=== PATIENT | male | born 1950 | race Two or more races ===

== ENCOUNTER 2021-01-24 12:47 | Inpatient (IN) | payer OTHER ==
[~2021-01-24] VITALS: Ht 170.2 cm; Wt 104.5 kg
[2021-01-24] MEDS ORDERED: SODIUM CHLORIDE 0.9% 1,000 ML IV ONE (13:15)
[2021-01-24] MEDS ORDERED: VANCOMYCIN PER PHARMACY 0 MG IV SCH (17:00)
[2021-01-24] MEDS ORDERED: PIPERACILLIN-TAZO 4.5GM 100 ML IV ONE (17:00)
[2021-01-24 17:07] LABS: Basophils # (auto) 0 10 ^3/uL (0-0.2); Basophils % (auto) 0.1 % (0.0-2.0); Eosinophils # (auto) 0 10 ^3/uL (0-0.8); Lymphocytes # (auto) 0.6 10 ^3/uL (0.4-5.4); White Blood Cell 7.7 10^3/uL (4.4-10.8)
[2021-01-24 17:09] LABS: Eosinophils % (auto) 0.5 % (0.0-7.0); Hematocrit 19.8 % (41.0-53.0); Lymphocytes % (auto) 7.5 % (10.0-50.0); Mean Corpuscular Hemoglobin 30.2 pg (28.0-32.0); Mean Corpuscular Hgb Conc. 32.1 g/dL (32.0-36.0); Mean Corpuscular Volume 94.1 fL (80.0-100.0); Monocytes # (auto) 1.1 10 ^3/uL (0-1.3); Monocytes % (auto) 13.7 % (0.0-12.0); Neutrophils % (auto) 78.2 % (37.0-80.0); Nucleated Red Blood Cells % 0.5 %; Red Blood Cells 2.11 10^6/uL (4.5-5.90); Red Cell Distribution Width 18.2 % (11.8-14.3)
[2021-01-24] MEDS: NOREPINEPHRINE 8 MG/250ML KIT 250 ML IV SCH (17:13)
[2021-01-24 17:14] LABS: Hemoglobin 6.4 g/dL (13.5-17.5)
[2021-01-24] MEDS ORDERED: OCTREOTIDE ACETATE 100 MCG in SODIUM CHL 0.9% 50 ML IV ONE (17:30)
[2021-01-24] MEDS ORDERED: PANTOPRAZOLE 40 MG/10 ML VIAL INJ IV ONE (17:30)
[2021-01-24] MEDS ORDERED: cefTRIAXone 1GM/50ML D5W 50 ML IV ONE (17:30)
[2021-01-24 17:31] LABS: Albumin 1.7 g/dL (3.4-5.0); Anion Gap 11 (5-15); Blood Urea Nitrogen 24 mg/dL (7-18); Calcium 8.1 mg/dL (8.5-10.1); Carbon Dioxide 20 mmol/L (21-32); Chloride 105 mmol/L (98-107); Glucose 107 mg/dL (74-106); Sodium 136 mmol/L (136-145)
[2021-01-24 17:35] LABS: Lactic Acid w/Reflex 5.1 mmol/L (0.4-2.0)
[2021-01-24 17:37] LABS: Alanine Aminotransferase 46 U/L (16-61); Alkaline Phosphatase 82 U/L (45-117); Aspartate Aminotransferase 59 U/L (15-37); Bilirubin, Total 5.5 mg/dL (0.2-1.0); GFR African American 133 mL/min; GFR Non-African American 110 mL/min; Total Protein 4.8 g/dL (6.4-8.2)
[2021-01-24 17:50] LABS: Blood Alcohol < 3.0 mg/dL (0-5)
[2021-01-24] MEDS: OCTREOTIDE ACETATE 500 MCG in SODIUM CHL 0.9% 99 ML IV SCH (18:09)
[2021-01-24] MEDS ORDERED: LORazepam 2MG/ML-1ML VIAL IV PRN (19:15)
[2021-01-24] MEDS ORDERED: MORPHINE SULFATE INJECTION 2 MG/ML SYRG IV PRN (19:15)
[2021-01-24] MEDS ORDERED: NITROGLYCERIN 0.4 MG SL TAB SL PRN (19:15)
[2021-01-24] MEDS ORDERED: SODIUM CHLORIDE 0.9% 500 ML IV ONE (19:30)
[2021-01-24 20:10] VITALS: BP 90/52
[2021-01-24 20:25] VITALS: BP 101/59
[2021-01-24 20:43] LABS: INR 2.23 (0.9-1.15); Partial Thromboplastin Time 39.4 sec (23.6-33.0)
[2021-01-24] MEDS: VANCOMYCIN 1GM/250ML 250 ML IV SCH (21:00)
[2021-01-24 21:15] VITALS: BP 102/53
[2021-01-24 22:00] VITALS: BP 96/59
[2021-01-24] MEDS: VASOPRESSIN 50 UNITS in D5W 5% 247.5 ML IV SCH (23:01)
[2021-01-24 23:20] VITALS: BP 104/66
[2021-01-25] VITALS (65 sets, daily range): BP systolic 67–126; BP diastolic 27–98
[2021-01-25] MEDS: OCTREOTIDE ACETATE 500 MCG in SODIUM CHL 0.9% 99 ML IV SCH ×3 (03:30→18:35)
[2021-01-25] MEDS: VASOPRESSIN 50 UNITS in D5W 5% 247.5 ML IV SCH ×6 (03:35→20:15)
[2021-01-25] MEDS: PANTOPRAZOLE 40 MG/10 ML VIAL INJ IV SCH ×2 (05:29→17:28)
[2021-01-25 07:11] LABS: Hemoglobin 7.1 g/dL (13.5-17.5)
[2021-01-25 07:13] LABS: Basophils # (auto) 0 10 ^3/uL (0-0.2); Basophils % (auto) 0.2 % (0.0-2.0); Eosinophils # (auto) 0 10 ^3/uL (0-0.8); Eosinophils % (auto) 0.3 % (0.0-7.0); Hematocrit 22.8 % (41.0-53.0); Lymphocytes # (auto) 0.6 10 ^3/uL (0.4-5.4); Lymphocytes % (auto) 4.8 % (10.0-50.0); Mean Corpuscular Hemoglobin 29.1 pg (28.0-32.0); Mean Corpuscular Volume 93.8 fL (80.0-100.0); Monocytes # (auto) 1.9 10 ^3/uL (0-1.3); Monocytes % (auto) 14.4 % (0.0-12.0); Neutrophils # (auto) 10.8 10 ^3/uL (1.6-8.6); Neutrophils % (auto) 80.3 % (37.0-80.0); Nucleated Red Blood Cells % 0.3 %; Red Blood Cells 2.43 10^6/uL (4.5-5.90); Red Cell Distribution Width 17.6 % (11.8-14.3); White Blood Cell 13.4 10^3/uL (4.4-10.8)
[2021-01-25 07:26] LABS: INR 2.05 (0.9-1.15)
[2021-01-25 07:33] LABS: Albumin 1.7 g/dL (3.4-5.0); BUN/Creatinine Ratio 26.6; Calcium 8.2 mg/dL (8.5-10.1)
[2021-01-25 07:36] LABS: Bilirubin, Total 7.5 mg/dL (0.2-1.0); Total Protein 4.8 g/dL (6.4-8.2)
[2021-01-25] MEDS: cefTRIAXone 1GM/50ML D5W 50 ML IV SCH (09:28)
[2021-01-25] MEDS ORDERED: PHYTONADIONE (VIT K)10 MG/ML 1ML VIAL SUBCUT ONE (10:45)
[2021-01-25] MEDS: phytonadione 10 MG in SODIUM CHL 0.9% 50 ML IV SCH (12:56)
[2021-01-25] MEDS: FOLIC ACID 1 MG, MULTIPLE VITAMIN 10 ML, MAGNESIUM SULF SDV 50% 8 MEQ, THIAMINE INJ 100... INJ SCH ×5 (12:57)
[2021-01-25 13:38] LABS: Basophils # (auto) 0 10 ^3/uL (0-0.2); Eosinophils # (auto) 0.1 10 ^3/uL (0-0.8); Eosinophils % (auto) 0.7 % (0.0-7.0); Hemoglobin 8.2 g/dL (13.5-17.5); Lymphocytes # (auto) 0.9 10 ^3/uL (0.4-5.4); Monocytes # (auto) 2.3 10 ^3/uL (0-1.3); Monocytes % (auto) 13.6 % (0.0-12.0); Neutrophils # (auto) 13.6 10 ^3/uL (1.6-8.6); White Blood Cell 16.9 10^3/uL (4.4-10.8)
[2021-01-25 13:39] LABS: Hematocrit 25.6 % (41.0-53.0); Lymphocytes % (auto) 5.2 % (10.0-50.0); Mean Corpuscular Hemoglobin 29.6 pg (28.0-32.0); Mean Corpuscular Hgb Conc. 32.1 g/dL (32.0-36.0); Neutrophils % (auto) 80.5 % (37.0-80.0); Nucleated Red Blood Cells % 0.4 %; Red Blood Cells 2.78 10^6/uL (4.5-5.90); Red Cell Distribution Width 17.4 % (11.8-14.3)
[2021-01-25] MEDS: LORazepam 2MG/ML-1ML VIAL IV PRN ×2 (16:31→21:10)
[2021-01-25] MEDS: NOREPINEPHRINE 8 MG/250ML KIT 250 ML IV SCH (17:00)
[2021-01-25] MEDS ORDERED: FUROSEMIDE 40 MG/4 ML VIAL IV ONE (17:15)
[2021-01-25] MEDS ORDERED: LIDOCAINE 2% JELLY 11ml (GLYDO) UR ONE (17:45)
[2021-01-25] MEDS: VANCOMYCIN 1GM/250ML 250 ML IV SCH (21:00)
[2021-01-25] MEDS ORDERED: VANCOMYCIN 1GM/250ML 250 ML IV ONE (21:53)
[2021-01-25] MEDS ORDERED: LORazepam 2MG/ML-1ML VIAL IV PRN (23:15)
[2021-01-26] VITALS (91 sets, daily range): BP systolic 83–130; BP diastolic 55–89
[2021-01-26] MEDS: VASOPRESSIN 50 UNITS in D5W 5% 247.5 ML IV SCH ×6 (00:25→21:15)
[2021-01-26] MEDS ORDERED: IPRATROPIUM BROM 0.5 MG/2.5ML INH SOL NEB SCH (02:00)
[2021-01-26] MEDS ORDERED: ALBUTEROL SULF 2.5 MG/0.5ML(0.5%) NEB SOLN NEB SCH (02:00)
[2021-01-26] MEDS: NOREPINEPHRINE 8 MG/250ML KIT 250 ML IV SCH (02:30)
[2021-01-26] MEDS: OCTREOTIDE ACETATE 500 MCG in SODIUM CHL 0.9% 99 ML IV SCH ×2 (04:30→19:30)
[2021-01-26 05:07] LABS: Basophils # (auto) 0 10 ^3/uL (0-0.2); Basophils % (auto) 0.1 % (0.0-2.0); Eosinophils # (auto) 0.1 10 ^3/uL (0-0.8); Hemoglobin 8.2 g/dL (13.5-17.5); Lymphocytes # (auto) 0.7 10 ^3/uL (0.4-5.4); Monocytes # (auto) 1.6 10 ^3/uL (0-1.3)
[2021-01-26 05:09] LABS: Eosinophils % (auto) 0.7 % (0.0-7.0); Hematocrit 25.8 % (41.0-53.0); Lymphocytes % (auto) 6.2 % (10.0-50.0); Mean Corpuscular Hemoglobin 29.5 pg (28.0-32.0); Mean Corpuscular Hgb Conc. 31.8 g/dL (32.0-36.0); Mean Corpuscular Volume 92.5 fL (80.0-100.0); Monocytes % (auto) 13.6 % (0.0-12.0); Neutrophils # (auto) 9.1 10 ^3/uL (1.6-8.6); Neutrophils % (auto) 79.4 % (37.0-80.0); Nucleated Red Blood Cells % 0.6 %; Red Blood Cells 2.79 10^6/uL (4.5-5.90); Red Cell Distribution Width 17.6 % (11.8-14.3); White Blood Cell 11.5 10^3/uL (4.4-10.8)
[2021-01-26 05:23] LABS: INR 1.73 (0.9-1.15); Partial Thromboplastin Time 36.2 sec (23.6-33.0)
[2021-01-26] MEDS: PANTOPRAZOLE 40 MG/10 ML VIAL INJ IV SCH ×2 (05:27→18:00)
[2021-01-26 05:34] LABS: Potassium 3.3 mmol/L (3.5-5.1)
[2021-01-26 05:42] LABS: Albumin 2.2 g/dL (3.4-5.0); BUN/Creatinine Ratio 24.4; Bilirubin, Total 7.6 mg/dL (0.2-1.0); Calcium 8.4 mg/dL (8.5-10.1); Magnesium 2.5 mg/dL (1.6-2.6); Total Protein 5.7 g/dL (6.4-8.2)
[2021-01-26] MEDS ORDERED: PHYTONADIONE (VIT K)10 MG/ML 1ML VIAL SUBCUT SCH (07:00)
[2021-01-26] MEDS: cefTRIAXone 1GM/50ML D5W 50 ML IV SCH (09:13)
[2021-01-26] MEDS ORDERED: fentaNYL CITRATE 100 MCG/2 ML VL ONE ×2 (10:19→10:45)
[2021-01-26] MEDS ORDERED: MIDAZOLAM HCL 2MG/2ML 2ml VIAL (1mg/ml) ONE ×2 (10:19→10:46)
[2021-01-26] MEDS ORDERED: ROCURONIUM 10MG/ML 10ML VIAL IV ONE (10:47)
[2021-01-26] MEDS ORDERED: SUCCINYLCHOLINE CHLORIDE 20 MG/ML 10ML VIAL IV ONE (11:08)
[2021-01-26] MEDS ORDERED: PROPOFOL 10 MG/ML 20 ML IV ONE (11:08)
[2021-01-26] MEDS ORDERED: PHENYLEPHRINE HCL 10 MG/ML VL IV ONE (11:08)
[2021-01-26] MEDS: phytonadione 10 MG in SODIUM CHL 0.9% 50 ML IV SCH (11:30)
[2021-01-26] MEDS: MIDAZOLAM DRIP 50 mg/50mL 50 ML IV SCH (11:45)
[2021-01-26] MEDS: FOLIC ACID 1 MG, MULTIPLE VITAMIN 10 ML, MAGNESIUM SULF SDV 50% 8 MEQ, THIAMINE INJ 100... INJ SCH ×5 (12:00)
[2021-01-26] MEDS: fentaNYL Drip 2500mCg/250mlNS 250 ML IV SCH (12:00)
[2021-01-26 13:02] LABS: Urine Bacteria FEW /hpf (None Seen); Urine Blood 2+ /uL (Negative); Urine Specific Gravity 1.011 (1.001-1.035); Urine WBC 5 /hpf (0 - 3)
[2021-01-26 13:17] LABS: Alcohol, Urine < 3.0 mg/dL (0-10); Amphetamine Screen, Urine NEGATIVE (NEGATIVE); Barbiturate Scree,Urine NEGATIVE (NEGATIVE); Benzodiazephine Screen, Urine POSITIVE (NEGATIVE); Cannabinoid Screen, Urine NEGATIVE (NEGATIVE); Cocaine Screen, Urine NEGATIVE (NEGATIVE); Opiate Scree,Urine NEGATIVE (NEGATIVE); Phencyclidine Screen, Urine NEGATIVE (NEGATIVE)
[2021-01-26] MEDS ORDERED: POTASSIUM CHL 20MEQ/100ML 100 ML IV ONE (13:30)
[2021-01-26] MEDS: VANCOMYCIN 1GM/250ML 250 ML IV SCH (21:00)
[2021-01-27] VITALS (100 sets, daily range): BP systolic 74–136; BP diastolic 38–82
[2021-01-27] MEDS: MIDAZOLAM DRIP 50 mg/50mL 50 ML IV SCH ×2 (00:30→19:40)
[2021-01-27] MEDS: NOREPINEPHRINE 8 MG/250ML KIT 250 ML IV SCH (00:45)
[2021-01-27] MEDS: VASOPRESSIN 50 UNITS in D5W 5% 247.5 ML IV SCH ×6 (01:18→22:15)
[2021-01-27] MEDS: OCTREOTIDE ACETATE 500 MCG in SODIUM CHL 0.9% 99 ML IV SCH ×3 (03:31→12:47)
[2021-01-27 03:56] LABS: Basophils # (auto) 0.1 10 ^3/uL (0-0.2); Basophils % (auto) 0.5 % (0.0-2.0); Eosinophils # (auto) 0.1 10 ^3/uL (0-0.8); Eosinophils % (auto) 1.1 % (0.0-7.0); Hematocrit 25.9 % (41.0-53.0); Hemoglobin 8.6 g/dL (13.5-17.5); Lymphocytes # (auto) 0.9 10 ^3/uL (0.4-5.4); Lymphocytes % (auto) 8.2 % (10.0-50.0); Mean Corpuscular Hemoglobin 30.4 pg (28.0-32.0); Mean Corpuscular Hgb Conc. 33.1 g/dL (32.0-36.0); Monocytes # (auto) 1.6 10 ^3/uL (0-1.3); Monocytes % (auto) 15.2 % (0.0-12.0); Neutrophils # (auto) 8.1 10 ^3/uL (1.6-8.6); Nucleated Red Blood Cells % 0.4 %; Red Blood Cells 2.82 10^6/uL (4.5-5.90); Red Cell Distribution Width 17.6 % (11.8-14.3); White Blood Cell 10.8 10^3/uL (4.4-10.8)
[2021-01-27 04:12] LABS: Calcium 8.3 mg/dL (8.5-10.1); Magnesium 2.4 mg/dL (1.6-2.6); Potassium 3.4 mmol/L (3.5-5.1)
[2021-01-27 04:14] LABS: BUN/Creatinine Ratio 20.8
[2021-01-27 04:17] LABS: INR 1.66 (0.9-1.15); Partial Thromboplastin Time 35.6 sec (23.6-33.0)
[2021-01-27] MEDS: fentaNYL Drip 2500mCg/250mlNS 250 ML IV SCH (05:00)
[2021-01-27] MEDS: PANTOPRAZOLE 40 MG/10 ML VIAL INJ IV SCH ×2 (06:00→18:28)
[2021-01-27] MEDS ORDERED: POTASSIUM CHL 20MEQ/100ML 100 ML IV ONE (08:00)
[2021-01-27] MEDS: cefTRIAXone 1GM/50ML D5W 50 ML IV SCH (08:35)
[2021-01-27] MEDS: phytonadione 10 MG in SODIUM CHL 0.9% 50 ML IV SCH (10:00)
[2021-01-27] MEDS ORDERED: FUROSEMIDE 40 MG/4 ML VIAL ONE (10:23)
[2021-01-27] MEDS ORDERED: FUROSEMIDE 40 MG/4 ML VIAL IV ONE ×2 (10:30→10:45)
[2021-01-27] MEDS: FOLIC ACID 1 MG, MULTIPLE VITAMIN 10 ML, MAGNESIUM SULF SDV 50% 8 MEQ, THIAMINE INJ 100... INJ SCH ×5 (15:13)
[2021-01-27] MEDS ORDERED: ROCURONIUM 10MG/ML 10ML VIAL IV ONE (16:29)
[2021-01-27] MEDS ORDERED: VANCOMYCIN 1GM/250ML 250 ML IV ONE (22:59)
[2021-01-27] MEDS: VANCOMYCIN 1GM/250ML 250 ML IV SCH (23:00)
[2021-01-28] VITALS (103 sets, daily range): BP systolic 60–152; BP diastolic 38–92
[2021-01-28] MEDS: fentaNYL Drip 2500mCg/250mlNS 250 ML IV SCH (02:18)
[2021-01-28] MEDS: VASOPRESSIN 50 UNITS in D5W 5% 247.5 ML IV SCH ×6 (02:21→23:15)
[2021-01-28] MEDS ORDERED: NOREPINEPHRINE BITARTRATE 1 ML IV ONE (03:09)
[2021-01-28 04:00] LABS: Basophils # (auto) 0 10 ^3/uL (0-0.2); Basophils % (auto) 0.2 % (0.0-2.0); Eosinophils # (auto) 0.4 10 ^3/uL (0-0.8); Eosinophils % (auto) 4.8 % (0.0-7.0); Hematocrit 27.8 % (41.0-53.0); Hemoglobin 8.9 g/dL (13.5-17.5); Lymphocytes # (auto) 1.3 10 ^3/uL (0.4-5.4); Lymphocytes % (auto) 15.5 % (10.0-50.0); Mean Corpuscular Hemoglobin 29.3 pg (28.0-32.0); Mean Corpuscular Volume 91.7 fL (80.0-100.0); Monocytes # (auto) 1.4 10 ^3/uL (0-1.3); Monocytes % (auto) 16.1 % (0.0-12.0); Neutrophils # (auto) 5.4 10 ^3/uL (1.6-8.6); Neutrophils % (auto) 63.4 % (37.0-80.0); Nucleated Red Blood Cells % 0.3 %; Red Blood Cells 3.03 10^6/uL (4.5-5.90); White Blood Cell 8.5 10^3/uL (4.4-10.8)
[2021-01-28 04:28] LABS: BUN/Creatinine Ratio 16.3; Magnesium 2.3 mg/dL (1.6-2.6)
[2021-01-28] MEDS: PANTOPRAZOLE 40 MG/10 ML VIAL INJ IV SCH ×2 (05:48→18:25)
[2021-01-28] MEDS: NOREPINEPHRINE 8 MG/250ML KIT 250 ML IV SCH ×2 (08:32)
[2021-01-28] MEDS: cefTRIAXone 1GM/50ML D5W 50 ML IV SCH (09:00)
[2021-01-28] MEDS ORDERED: FUROSEMIDE 40 MG/4 ML VIAL IV ONE (11:30)
[2021-01-28] MEDS: FOLIC ACID 1 MG, MULTIPLE VITAMIN 10 ML, MAGNESIUM SULF SDV 50% 8 MEQ, THIAMINE INJ 100... INJ SCH ×5 (12:09)
[2021-01-28] MEDS: POTASSIUM CHL 20MEQ/100ML 100 ML IV SCH ×2 (13:18→14:58)
[2021-01-28] MEDS: ALBUMIN 25% 100 ML IV SCH ×2 (13:18→21:33)
[2021-01-28] MEDS: VANCOMYCIN 1GM/250ML 250 ML IV SCH (15:20)
[2021-01-28] MEDS: ALBUTEROL SULF 2.5 MG/0.5ML(0.5%) NEB SOLN NEB PRN (21:52)
[2021-01-28] MEDS: ACETYLCYSTEINE 20%(200MG/ML) SOL 4ML NEB SCH (21:53)
[2021-01-28 22:18] LABS: Blood Urea Nitrogen 12 mg/dL (7-18); Carbon Dioxide 28 mmol/L (21-32); Chloride 105 mmol/L (98-107); Glucose 132 mg/dL (74-106)
[2021-01-28 22:20] LABS: BUN/Creatinine Ratio 13.8; GFR African American 112 mL/min; GFR Non-African American 92 mL/min
[2021-01-28 22:32] LABS: Anion Gap 7 (5-15); Calcium 7.7 mg/dL (8.5-10.1); Sodium 140 mmol/L (136-145)
[2021-01-29] VITALS (106 sets, daily range): BP systolic 59–148; BP diastolic 29–103
[2021-01-29] MEDS: MIDAZOLAM DRIP 50 mg/50mL 50 ML IV SCH ×3 (01:14→20:00)
[2021-01-29] MEDS: VASOPRESSIN 50 UNITS in D5W 5% 247.5 ML IV SCH ×5 (03:25→20:05)
[2021-01-29] MEDS: ALBUMIN 25% 100 ML IV SCH (04:33)
[2021-01-29 04:57] LABS: Basophils # (auto) 0 10 ^3/uL (0-0.2); Basophils % (auto) 0.5 % (0.0-2.0); Eosinophils # (auto) 0.4 10 ^3/uL (0-0.8); Lymphocytes # (auto) 0.9 10 ^3/uL (0.4-5.4); Monocytes # (auto) 0.9 10 ^3/uL (0-1.3)
[2021-01-29 05:00] LABS: Eosinophils % (auto) 6.4 % (0.0-7.0); Hematocrit 23.1 % (41.0-53.0); Hemoglobin 7.6 g/dL (13.5-17.5); Lymphocytes % (auto) 16.5 % (10.0-50.0); Mean Corpuscular Hemoglobin 30.1 pg (28.0-32.0); Mean Corpuscular Hgb Conc. 32.9 g/dL (32.0-36.0); Mean Corpuscular Volume 91.6 fL (80.0-100.0); Neutrophils # (auto) 3.5 10 ^3/uL (1.6-8.6); Neutrophils % (auto) 61.6 % (37.0-80.0); Nucleated Red Blood Cells % 0.3 %; Red Blood Cells 2.52 10^6/uL (4.5-5.90); Red Cell Distribution Width 17.8 % (11.8-14.3); White Blood Cell 5.7 10^3/uL (4.4-10.8)
[2021-01-29 05:10] LABS: INR 1.76 (0.9-1.15); Partial Thromboplastin Time 45.6 sec (23.6-33.0)
[2021-01-29 05:15] LABS: Magnesium 2.2 mg/dL (1.6-2.6)
[2021-01-29 05:17] LABS: BUN/Creatinine Ratio 13.9
[2021-01-29 05:37] LABS: Potassium 2.9 mmol/L (3.5-5.1)
[2021-01-29] MEDS: PANTOPRAZOLE 40 MG/10 ML VIAL INJ IV SCH ×2 (06:09→17:50)
[2021-01-29] MEDS: ALBUTEROL SULF 2.5 MG/0.5ML(0.5%) NEB SOLN NEB PRN ×3 (06:21→23:05)
[2021-01-29] MEDS: ACETYLCYSTEINE 20%(200MG/ML) SOL 4ML NEB SCH ×3 (06:21→23:05)
[2021-01-29] MEDS: VANCOMYCIN 1GM/250ML 250 ML IV SCH (06:29)
[2021-01-29] MEDS: cefTRIAXone 1GM/50ML D5W 50 ML IV SCH (08:24)
[2021-01-29] MEDS: POTASSIUM CHL 20MEQ/100ML 100 ML IV SCH ×2 (11:14→13:51)
[2021-01-29] MEDS: fentaNYL Drip 2500mCg/250mlNS 250 ML IV SCH (11:36)
[2021-01-29] MEDS: FOLIC ACID 1 MG, MULTIPLE VITAMIN 10 ML, MAGNESIUM SULF SDV 50% 8 MEQ, THIAMINE INJ 100... INJ SCH ×5 (13:50)
[2021-01-29] MEDS: NOREPINEPHRINE 8 MG/250ML KIT 250 ML IV SCH (17:50)
[2021-01-30] VITALS (100 sets, daily range): BP systolic 69–122; BP diastolic 48–92
[2021-01-30] MEDS: VASOPRESSIN 50 UNITS in D5W 5% 247.5 ML IV SCH ×6 (00:15→21:05)
[2021-01-30 04:17] LABS: Basophils # (auto) 0.1 10 ^3/uL (0-0.2); Eosinophils # (auto) 0.5 10 ^3/uL (0-0.8); Hemoglobin 8.1 g/dL (13.5-17.5); Nucleated Red Blood Cells % 0.1 %
[2021-01-30 04:35] LABS: Basophils % (auto) 1.3 % (0.0-2.0); Eosinophils % (auto) 6.8 % (0.0-7.0); Hematocrit 25.5 % (41.0-53.0); Lymphocytes # (auto) 1.1 10 ^3/uL (0.4-5.4); Magnesium 2.4 mg/dL (1.6-2.6); Mean Corpuscular Hgb Conc. 31.8 g/dL (32.0-36.0); Mean Corpuscular Volume 91.1 fL (80.0-100.0); Monocytes % (auto) 13.6 % (0.0-12.0); Neutrophils # (auto) 4.5 10 ^3/uL (1.6-8.6); Neutrophils % (auto) 63.3 % (37.0-80.0); Potassium 3.6 mmol/L (3.5-5.1); Red Cell Distribution Width 18.3 % (11.8-14.3); White Blood Cell 7.1 10^3/uL (4.4-10.8)
[2021-01-30 04:39] LABS: BUN/Creatinine Ratio 11.3; Bilirubin, Total 5.4 mg/dL (0.2-1.0); Total Protein 4.8 g/dL (6.4-8.2)
[2021-01-30] MEDS: PANTOPRAZOLE 40 MG/10 ML VIAL INJ IV SCH ×2 (05:46→18:30)
[2021-01-30] MEDS: ALBUTEROL SULF 2.5 MG/0.5ML(0.5%) NEB SOLN NEB PRN ×3 (06:20→22:00)
[2021-01-30] MEDS: ACETYLCYSTEINE 20%(200MG/ML) SOL 4ML NEB SCH ×3 (06:21→22:00)
[2021-01-30] MEDS: NOREPINEPHRINE 8 MG/250ML KIT 250 ML IV SCH (06:49)
[2021-01-30] MEDS: cefTRIAXone 1GM/50ML D5W 50 ML IV SCH (09:56)
[2021-01-30] MEDS ORDERED: FUROSEMIDE 40 MG/4 ML VIAL IV ONE (10:00)
[2021-01-30] MEDS: POTASSIUM CHL 20MEQ/100ML 100 ML IV SCH ×2 (10:47→12:28)
[2021-01-30] MEDS: fentaNYL Drip 2500mCg/250mlNS 250 ML IV SCH (11:45)
[2021-01-30] MEDS: FOLIC ACID 1 MG, MULTIPLE VITAMIN 10 ML, MAGNESIUM SULF SDV 50% 8 MEQ, THIAMINE INJ 100... INJ SCH ×5 (14:40)
[2021-01-31] VITALS (100 sets, daily range): BP systolic 73–138; BP diastolic 52–94
[2021-01-31] MEDS: VASOPRESSIN 50 UNITS in D5W 5% 247.5 ML IV SCH ×3 (01:15→08:34)
[2021-01-31 05:22] LABS: Basophils # (auto) 0.1 10 ^3/uL (0-0.2); Basophils % (auto) 1.1 % (0.0-2.0); Eosinophils # (auto) 0.5 10 ^3/uL (0-0.8); Eosinophils % (auto) 6.1 % (0.0-7.0); Hematocrit 26.4 % (41.0-53.0); Hemoglobin 8.6 g/dL (13.5-17.5); Lymphocytes % (auto) 11.9 % (10.0-50.0); Mean Corpuscular Hemoglobin 29.1 pg (28.0-32.0); Mean Corpuscular Hgb Conc. 32.4 g/dL (32.0-36.0); Mean Corpuscular Volume 89.8 fL (80.0-100.0); Monocytes # (auto) 1.1 10 ^3/uL (0-1.3); Monocytes % (auto) 12.8 % (0.0-12.0); Neutrophils # (auto) 5.6 10 ^3/uL (1.6-8.6); Neutrophils % (auto) 68.1 % (37.0-80.0); Nucleated Red Blood Cells % 0.2 %; Red Blood Cells 2.94 10^6/uL (4.5-5.90); Red Cell Distribution Width 18.7 % (11.8-14.3); White Blood Cell 8.3 10^3/uL (4.4-10.8)
[2021-01-31] MEDS: PANTOPRAZOLE 40 MG/10 ML VIAL INJ IV SCH ×2 (05:56→18:00)
[2021-01-31] MEDS: fentaNYL Drip 2500mCg/250mlNS 250 ML IV SCH ×2 (05:58→22:00)
[2021-01-31] MEDS: ACETYLCYSTEINE 20%(200MG/ML) SOL 4ML NEB SCH ×2 (06:11→13:22)
[2021-01-31] MEDS: ALBUTEROL SULF 2.5 MG/0.5ML(0.5%) NEB SOLN NEB PRN ×2 (06:11→13:21)
[2021-01-31] MEDS: cefTRIAXone 1GM/50ML D5W 50 ML IV SCH (09:00)
[2021-01-31 09:31] LABS: BUN/Creatinine Ratio 9.4; Calcium 7.8 mg/dL (8.5-10.1); Magnesium 1.9 mg/dL (1.6-2.6); Potassium 3.2 mmol/L (3.5-5.1)
[2021-01-31] MEDS ORDERED: FUROSEMIDE 40 MG/4 ML VIAL IV ONE (10:15)
[2021-01-31] MEDS: ALBUMIN 25% 100 ML IV SCH ×2 (11:55→18:43)
[2021-01-31] MEDS: MIDAZOLAM DRIP 50 mg/50mL 50 ML IV SCH ×2 (11:57→21:00)
[2021-01-31] MEDS: POTASSIUM CHL 20MEQ/100ML 100 ML IV SCH ×2 (12:00→14:57)
[2021-01-31] MEDS: FOLIC ACID 1 MG, MULTIPLE VITAMIN 10 ML, MAGNESIUM SULF SDV 50% 8 MEQ, THIAMINE INJ 100... INJ SCH ×5 (14:57)
[2021-01-31 15:51] LABS: Free T3 1.7 pg/mL (2.3-4.2); Free T4 (Free Thyroxine) 0.71 ng/dL (0.89-1.76)
[2021-01-31] MEDS: NOREPINEPHRINE 8 MG/250ML KIT 250 ML IV SCH ×2 (17:00→20:04)
[2021-01-31 20:24] LABS: INR 1.94 (0.9-1.15); Partial Thromboplastin Time 54.1 sec (23.6-33.0)
[2021-02-01] VITALS (94 sets, daily range): BP systolic 92–127; BP diastolic 51–68
[2021-02-01] MEDS: MIDAZOLAM DRIP 50 mg/50mL 50 ML IV SCH ×2 (02:13→09:16)
[2021-02-01] MEDS: ALBUMIN 25% 100 ML IV SCH (02:15)
[2021-02-01 04:34] LABS: Calcium 7.6 mg/dL (8.5-10.1)
[2021-02-01 04:37] LABS: Albumin 3.5 g/dL (3.4-5.0); BUN/Creatinine Ratio 8.6
[2021-02-01 04:40] LABS: Bilirubin, Total 5.5 mg/dL (0.2-1.0)
[2021-02-01 04:43] LABS: Basophils # (auto) 0.1 10 ^3/uL (0-0.2); Basophils % (auto) 1.6 % (0.0-2.0); Hemoglobin 7.8 g/dL (13.5-17.5); Neutrophils # (auto) 5.4 10 ^3/uL (1.6-8.6)
[2021-02-01 04:45] LABS: Eosinophils # (auto) 0.5 10 ^3/uL (0-0.8); Eosinophils % (auto) 6.5 % (0.0-7.0); Hematocrit 23.7 % (41.0-53.0); Mean Corpuscular Hemoglobin 29.6 pg (28.0-32.0); Mean Corpuscular Hgb Conc. 32.9 g/dL (32.0-36.0); Mean Corpuscular Volume 89.9 fL (80.0-100.0); Monocytes % (auto) 12.2 % (0.0-12.0); Neutrophils % (auto) 67.7 % (37.0-80.0); Nucleated Red Blood Cells % 0.1 %; Red Blood Cells 2.63 10^6/uL (4.5-5.90); Red Cell Distribution Width 17.9 % (11.8-14.3)
[2021-02-01] MEDS: PANTOPRAZOLE 40 MG/10 ML VIAL INJ IV SCH ×2 (06:00→17:51)
[2021-02-01] MEDS: cefTRIAXone 1GM/50ML D5W 50 ML IV SCH (09:14)
[2021-02-01] MEDS: POTASSIUM CHL 20MEQ/100ML 100 ML IV SCH ×2 (09:51→11:59)
[2021-02-01] MEDS: FOLIC ACID 1 MG, MULTIPLE VITAMIN 10 ML, MAGNESIUM SULF SDV 50% 8 MEQ, THIAMINE INJ 100... INJ SCH ×5 (13:47)
[2021-02-01] MEDS: NOREPINEPHRINE 8 MG/250ML KIT 250 ML IV SCH (20:30)
[2021-02-01] MEDS: fentaNYL Drip 2500mCg/250mlNS 250 ML IV SCH (22:00)
[2021-02-02] VITALS (84 sets, daily range): BP systolic 84–142; BP diastolic 47–71
[2021-02-02 04:56] LABS: Basophils # (auto) 0.1 10 ^3/uL (0-0.2); Eosinophils # (auto) 0.4 10 ^3/uL (0-0.8); Hemoglobin 8.1 g/dL (13.5-17.5); Lymphocytes # (auto) 0.8 10 ^3/uL (0.4-5.4); Lymphocytes % (auto) 10.5 % (10.0-50.0); Monocytes # (auto) 0.9 10 ^3/uL (0-1.3); Nucleated Red Blood Cells % 0.1 %; White Blood Cell 7.8 10^3/uL (4.4-10.8)
[2021-02-02 05:00] LABS: Basophils % (auto) 1.2 % (0.0-2.0); Eosinophils % (auto) 4.5 % (0.0-7.0); Hematocrit 25.2 % (41.0-53.0); Mean Corpuscular Hgb Conc. 32.1 g/dL (32.0-36.0); Mean Corpuscular Volume 90.3 fL (80.0-100.0); Neutrophils # (auto) 5.7 10 ^3/uL (1.6-8.6); Neutrophils % (auto) 72.8 % (37.0-80.0); Red Blood Cells 2.79 10^6/uL (4.5-5.90); Red Cell Distribution Width 17.5 % (11.8-14.3)
[2021-02-02 05:18] LABS: Calcium 7.8 mg/dL (8.5-10.1); Magnesium 2.5 mg/dL (1.6-2.6); Potassium 3.3 mmol/L (3.5-5.1)
[2021-02-02] MEDS: PANTOPRAZOLE 40 MG/10 ML VIAL INJ IV SCH ×2 (06:00→17:51)
[2021-02-02] MEDS: cefTRIAXone 1GM/50ML D5W 50 ML IV SCH (08:33)
[2021-02-02] MEDS ORDERED: FUROSEMIDE 40 MG/4 ML VIAL IV ONE (10:15)
[2021-02-02] MEDS: MIDAZOLAM DRIP 50 mg/50mL 50 ML IV SCH (10:31)
[2021-02-02 10:44] LABS: Albumin 2.2 g/dL (3.4-5.0); Magnesium 2.1 mg/dL (1.6-2.6)
[2021-02-02] MEDS ORDERED: TPN PER PHARMACY 0 ML IV SCH (10:45)
[2021-02-02 10:50] LABS: Bilirubin, Direct 2.9 mg/dL (0-0.2); Bilirubin, Total 5.5 mg/dL (0.2-1.0); Phosphorus 2.1 mg/dL (2.5-4.90); Pre Albumin 3.8 mg/dL (20.0-40.0)
[2021-02-02] MEDS: POTASSIUM CHL 20MEQ/100ML 100 ML IV SCH ×2 (10:51→13:05)
[2021-02-02] MEDS: FOLIC ACID 1 MG, MULTIPLE VITAMIN 10 ML, MAGNESIUM SULF SDV 50% 8 MEQ, THIAMINE INJ 100... INJ SCH ×5 (13:04)
[2021-02-02] MEDS ORDERED: POTASSIUM PHOSP 22MEQ(15MMOLE) in NS 100 ML IV ONE (15:00)
[2021-02-02] MEDS ORDERED: TPN PER PHARMACY IV NR ×10 (20:00)
[2021-02-02] MEDS: NOREPINEPHRINE 8 MG/250ML KIT 250 ML IV SCH (20:14)
[2021-02-03] VITALS (54 sets, daily range): BP systolic 87–130; BP diastolic 45–75
[2021-02-03] MEDS ORDERED: DEXTROSE (50%) 50ML SYRG IV SCH
[2021-02-03 04:35] LABS: BUN/Creatinine Ratio 8.1; Calcium 8.1 mg/dL (8.5-10.1); Potassium 3.7 mmol/L (3.5-5.1)
[2021-02-03 04:44] LABS: Bilirubin, Total 4.6 mg/dL (0.2-1.0); Total Protein 4.9 g/dL (6.4-8.2)
[2021-02-03] MEDS: InsuLIN REG 1unit/0.01ml Soln (100units/ml) SC SCH ×4 (06:00→17:37)
[2021-02-03] MEDS: ACCU-CHEK COMFORT CURVE STRIP VI SCH ×3 (06:26→12:00)
[2021-02-03] MEDS: PANTOPRAZOLE 40 MG/10 ML VIAL INJ IV SCH ×2 (06:26→17:37)
[2021-02-03] MEDS: cefTRIAXone 1GM/50ML D5W 50 ML IV SCH (09:07)
[2021-02-03] MEDS ORDERED: LACTULOSE 20Gm/30ML SOLN PO ONE (10:45)
[2021-02-03] MEDS ORDERED: FUROSEMIDE 40 MG/4 ML VIAL IV ONE (14:15)
[2021-02-03] MEDS: ALBUTEROL SULF 2.5 MG/0.5ML(0.5%) NEB SOLN NEB PRN (18:09)
[2021-02-03] MEDS: TPN PER PHARMACY IV NR ×7 (19:58)
[2021-02-03] MEDS: LACTULOSE 20Gm/30ML SOLN PO SCH (22:00)
[2021-02-04] VITALS (30 sets, daily range): BP systolic 94–128; BP diastolic 44–73
[2021-02-04] MEDS: InsuLIN REG 1unit/0.01ml Soln (100units/ml) SC SCH ×4 (00:31→17:38)
[2021-02-04 03:55] LABS: Basophils # (auto) 0.1 10 ^3/uL (0-0.2); Basophils % (auto) 1.3 % (0.0-2.0); Eosinophils # (auto) 0.2 10 ^3/uL (0-0.8); Lymphocytes # (auto) 0.6 10 ^3/uL (0.4-5.4); Mean Corpuscular Hemoglobin 28.5 pg (28.0-32.0); Mean Corpuscular Hgb Conc. 31.6 g/dL (32.0-36.0); Mean Corpuscular Volume 90.3 fL (80.0-100.0)
[2021-02-04 03:58] LABS: Hematocrit 24.9 % (41.0-53.0); Hemoglobin 7.9 g/dL (13.5-17.5); Lymphocytes % (auto) 8.7 % (10.0-50.0); Monocytes # (auto) 0.7 10 ^3/uL (0-1.3); Monocytes % (auto) 10.3 % (0.0-12.0); Neutrophils # (auto) 5.1 10 ^3/uL (1.6-8.6); Neutrophils % (auto) 76.7 % (37.0-80.0); Red Blood Cells 2.76 10^6/uL (4.5-5.90); Red Cell Distribution Width 18.4 % (11.8-14.3); White Blood Cell 6.6 10^3/uL (4.4-10.8)
[2021-02-04 04:21] LABS: Albumin 2.1 g/dL (3.4-5.0); Calcium 8.1 mg/dL (8.5-10.1); Potassium 3.7 mmol/L (3.5-5.1)
[2021-02-04 04:24] LABS: BUN/Creatinine Ratio 11.7
[2021-02-04 04:27] LABS: Bilirubin, Total 4.2 mg/dL (0.2-1.0); Phosphorus 2.9 mg/dL (2.5-4.90); Total Protein 5.3 g/dL (6.4-8.2)
[2021-02-04] MEDS: PANTOPRAZOLE 40 MG/10 ML VIAL INJ IV SCH ×2 (06:09→17:36)
[2021-02-04] MEDS: ACCU-CHEK COMFORT CURVE STRIP VI SCH ×4 (06:10→17:38)
[2021-02-04] MEDS: cefTRIAXone 1GM/50ML D5W 50 ML IV SCH (09:00)
[2021-02-04] MEDS: ALBUTEROL SULF 2.5 MG/0.5ML(0.5%) NEB SOLN NEB PRN (09:13)
[2021-02-04] MEDS: LACTULOSE 20Gm/30ML SOLN PO SCH ×2 (10:00→21:51)
[2021-02-04] MEDS: FUROSEMIDE 40 MG/4 ML VIAL IV SCH (10:35)
[2021-02-04] MEDS ORDERED: LACTULOSE 10g/15ml SOLN PR ONE (12:00)
[2021-02-04] MEDS ORDERED: phytonadione 10 MG in SODIUM CHL 0.9% 50 ML IV ONE (12:00)
[2021-02-04] MEDS: LORazepam 2MG/ML-1ML VIAL IV PRN (15:46)
[2021-02-04] MEDS: TPN PER PHARMACY IV NR ×7 (19:59)
[2021-02-04] MEDS ORDERED: TPN PER PHARMACY IV NR ×7 (20:00)
[2021-02-04] MEDS: MORPHINE SULFATE INJECTION 2 MG/ML SYRG IV PRN (20:04)
[2021-02-05] VITALS (9 sets, daily range): BP systolic 103–128; BP diastolic 56–74
[2021-02-05] MEDS: MORPHINE SULFATE INJECTION 2 MG/ML SYRG IV PRN (04:40)
[2021-02-05] MEDS: InsuLIN REG 1unit/0.01ml Soln (100units/ml) SC SCH ×2 (06:00)
[2021-02-05] MEDS: ACCU-CHEK COMFORT CURVE STRIP VI SCH ×2 (06:27)
[2021-02-05] MEDS: PANTOPRAZOLE 40 MG/10 ML VIAL INJ IV SCH ×2 (06:27→18:00)
[2021-02-05 06:40] LABS: Basophils # (auto) 0.1 10 ^3/uL (0-0.2); Eosinophils # (auto) 0.2 10 ^3/uL (0-0.8); Monocytes # (auto) 0.8 10 ^3/uL (0-1.3); Neutrophils # (auto) 6.5 10 ^3/uL (1.6-8.6); Red Cell Distribution Width 18.6 % (11.8-14.3)
[2021-02-05 06:41] LABS: Eosinophils % (auto) 2.9 % (0.0-7.0); Hematocrit 24.9 % (41.0-53.0); Lymphocytes # (auto) 0.7 10 ^3/uL (0.4-5.4); Lymphocytes % (auto) 8.2 % (10.0-50.0); Mean Corpuscular Hgb Conc. 32.3 g/dL (32.0-36.0); Mean Corpuscular Volume 89.9 fL (80.0-100.0); Monocytes % (auto) 9.6 % (0.0-12.0); Neutrophils % (auto) 78.3 % (37.0-80.0); Nucleated Red Blood Cells % 0.2 %; Red Blood Cells 2.77 10^6/uL (4.5-5.90); White Blood Cell 8.4 10^3/uL (4.4-10.8)
[2021-02-05 06:53] LABS: INR 1.93 (0.9-1.15); Partial Thromboplastin Time 53.8 sec (23.6-33.0)
[2021-02-05 07:02] LABS: Albumin 2.1 g/dL (3.4-5.0); Calcium 8.1 mg/dL (8.5-10.1); Magnesium 2.3 mg/dL (1.6-2.6); Potassium 3.6 mmol/L (3.5-5.1)
[2021-02-05 07:05] LABS: BUN/Creatinine Ratio 15.8; Bilirubin, Total 4.2 mg/dL (0.2-1.0); Phosphorus 2.5 mg/dL (2.5-4.90); Total Protein 5.4 g/dL (6.4-8.2)
[2021-02-05] MEDS ORDERED: phytonadione 10 MG in SODIUM CHL 0.9% 50 ML IV ONE (08:15)
[2021-02-05] MEDS: cefTRIAXone 1GM/50ML D5W 50 ML IV SCH (09:30)
[2021-02-05] MEDS: FUROSEMIDE 40 MG/4 ML VIAL IV SCH (10:00)
[2021-02-05] MEDS ORDERED: PHYTONADIONE(VitK) ORAL Susp 10mg/10ml(1mg/ml) PO SCH (10:00)
[2021-02-05] MEDS: LACTULOSE 20Gm/30ML SOLN PO SCH ×2 (10:00→22:52)
[2021-02-05] MEDS: LORazepam 2MG/ML-1ML VIAL IV PRN (10:36)
[2021-02-06] VITALS: BP 128/57
[2021-02-06 04:00] VITALS: BP 106/68
[2021-02-06 04:02] LABS: Basophils # (auto) 0.1 10 ^3/uL (0-0.2); Basophils % (auto) 1.4 % (0.0-2.0); Eosinophils # (auto) 0.3 10 ^3/uL (0-0.8); Hematocrit 25.8 % (41.0-53.0); Lymphocytes # (auto) 0.9 10 ^3/uL (0.4-5.4); Lymphocytes % (auto) 10.8 % (10.0-50.0); Mean Corpuscular Hemoglobin 28.9 pg (28.0-32.0); Monocytes # (auto) 0.8 10 ^3/uL (0-1.3); Nucleated Red Blood Cells % 0.1 %
[2021-02-06 04:04] LABS: Eosinophils % (auto) 3.4 % (0.0-7.0); Hemoglobin 8.3 g/dL (13.5-17.5); Mean Corpuscular Hgb Conc. 32.3 g/dL (32.0-36.0); Mean Corpuscular Volume 89.3 fL (80.0-100.0); Monocytes % (auto) 9.3 % (0.0-12.0); Neutrophils # (auto) 6.6 10 ^3/uL (1.6-8.6); Neutrophils % (auto) 75.1 % (37.0-80.0); Red Blood Cells 2.88 10^6/uL (4.5-5.90); Red Cell Distribution Width 19.2 % (11.8-14.3); White Blood Cell 8.8 10^3/uL (4.4-10.8)
[2021-02-06 04:15] LABS: INR 1.96 (0.9-1.15); Partial Thromboplastin Time 56.9 sec (23.6-33.0)
[2021-02-06 04:24] LABS: BUN/Creatinine Ratio 19.6; Calcium 8.4 mg/dL (8.5-10.1); Potassium 3.6 mmol/L (3.5-5.1)
[2021-02-06] MEDS: PANTOPRAZOLE 40 MG/10 ML VIAL INJ IV SCH ×2 (06:27→18:34)
[2021-02-06] MEDS: LORazepam 2MG/ML-1ML VIAL IV PRN ×3 (07:44→20:16)
[2021-02-06] MEDS: cefTRIAXone 1GM/50ML D5W 50 ML IV SCH (09:14)
[2021-02-06] MEDS: LACTULOSE 20Gm/30ML SOLN PO SCH ×2 (10:00→21:46)
[2021-02-06] MEDS: FUROSEMIDE 40 MG/4 ML VIAL IV SCH (11:04)
[2021-02-06 17:05] VITALS: BP 133/61
[2021-02-06 22:00] VITALS: BP 134/80
[2021-02-06] MEDS ORDERED: PHYTONADIONE (VIT K)10 MG/ML 1ML VIAL SUBCUT ONE (22:15)
[2021-02-07] MEDS: LORazepam 2MG/ML-1ML VIAL IV PRN ×2 (02:50→08:14)
[2021-02-07] MEDS: MORPHINE SULFATE INJECTION 2 MG/ML SYRG IV PRN (04:53)
[2021-02-07 05:00] VITALS: BP 105/86
[2021-02-07] MEDS: PANTOPRAZOLE 40 MG/10 ML VIAL INJ IV SCH (06:10)
[2021-02-07 07:49] LABS: Basophils # (auto) 0.1 10 ^3/uL (0-0.2)
[2021-02-07 07:51] LABS: Basophils % (auto) 1.1 % (0.0-2.0); Eosinophils # (auto) 0.2 10 ^3/uL (0-0.8); Eosinophils % (auto) 2.9 % (0.0-7.0); Hematocrit 24.7 % (41.0-53.0); Hemoglobin 8.1 g/dL (13.5-17.5); Lymphocytes # (auto) 0.8 10 ^3/uL (0.4-5.4); Lymphocytes % (auto) 9.3 % (10.0-50.0); Mean Corpuscular Hemoglobin 29.4 pg (28.0-32.0); Mean Corpuscular Hgb Conc. 32.9 g/dL (32.0-36.0); Mean Corpuscular Volume 89.4 fL (80.0-100.0); Monocytes % (auto) 11.2 % (0.0-12.0); Neutrophils # (auto) 6.5 10 ^3/uL (1.6-8.6); Neutrophils % (auto) 75.5 % (37.0-80.0); Red Blood Cells 2.77 10^6/uL (4.5-5.90); Red Cell Distribution Width 19.5 % (11.8-14.3); White Blood Cell 8.6 10^3/uL (4.4-10.8)
[2021-02-07 08:00] LABS: Anion Gap 8 (5-15); BUN/Creatinine Ratio 14.7; Blood Urea Nitrogen 11 mg/dL (7-18); Calcium 8.5 mg/dL (8.5-10.1); Carbon Dioxide 27 mmol/L (21-32); Chloride 106 mmol/L (98-107); GFR African American 133 mL/min; GFR Non-African American 110 mL/min; Glucose 65 mg/dL (74-106); Magnesium 1.9 mg/dL (1.6-2.6); Potassium 4.5 mmol/L (3.5-5.1); Sodium 141 mmol/L (136-145)
[2021-02-07] MEDS: cefTRIAXone 1GM/50ML D5W 50 ML IV SCH (08:15)
[2021-02-07] MEDS: FUROSEMIDE 40 MG/4 ML VIAL IV SCH (09:50)
[2021-02-07] MEDS: LACTULOSE 20Gm/30ML SOLN PO SCH ×2 (09:50→21:29)
[2021-02-07] MEDS ORDERED: THIAMINE HCL 100 MG TAB PO ONE (10:30)
[2021-02-07] MEDS ORDERED: PHYTONADIONE(VitK) ORAL Susp 10mg/10ml(1mg/ml) PO ONE (10:30)
[2021-02-07] MEDS ORDERED: FOLIC ACID 1 MG TAB PO ONE (10:30)
[2021-02-07] MEDS ORDERED: MULTIPLE VITAMIN TAB PO ONE (10:30)
[2021-02-07] MEDS ORDERED: PANTOPRAZOLE 40 MG TAB PO ONE (10:30)
[2021-02-07 13:00] VITALS: BP 114/70
[2021-02-07 16:30] LABS: Urine Bacteria MOD /hpf (None Seen); Urine Blood 3+ /uL (Negative); Urine Mucus FEW (None Seen); Urine Specific Gravity 1.017 (1.001-1.035); Urine WBC 503 /hpf (0 - 3); Urine WBC Clumps PRESENT /hpf (None Seen)
[2021-02-07 16:41] VITALS: BP 110/66
[2021-02-07] MEDS: HALOPERIDOL LACTATE 5 MG/ML INJ VIAL IM PRN (20:49)
[2021-02-07 22:00] VITALS: BP 135/66
[2021-02-08 04:58] VITALS: BP 130/65
[2021-02-08 07:22] LABS: Hemoglobin 8.1 g/dL (13.5-17.5); Mean Corpuscular Hemoglobin 29.5 pg (28.0-32.0); Mean Corpuscular Hgb Conc. 33.2 g/dL (32.0-36.0); Red Blood Cells 2.75 10^6/uL (4.5-5.90)
[2021-02-08 07:28] LABS: Basophils # (auto) 0 10 ^3/uL (0-0.2); Basophils % (auto) 0.7 % (0.0-2.0); Eosinophils # (auto) 0.3 10 ^3/uL (0-0.8); Eosinophils % (auto) 4.6 % (0.0-7.0); Hematocrit 24.4 % (41.0-53.0); Lymphocytes # (auto) 0.9 10 ^3/uL (0.4-5.4); Lymphocytes % (auto) 12.2 % (10.0-50.0); Mean Corpuscular Volume 88.7 fL (80.0-100.0); Monocytes # (auto) 0.8 10 ^3/uL (0-1.3); Monocytes % (auto) 10.9 % (0.0-12.0); Neutrophils # (auto) 5.4 10 ^3/uL (1.6-8.6); Neutrophils % (auto) 71.6 % (37.0-80.0); Red Cell Distribution Width 19.9 % (11.8-14.3); White Blood Cell 7.5 10^3/uL (4.4-10.8)
[2021-02-08 07:33] LABS: INR 1.92 (0.9-1.15)
[2021-02-08 07:41] LABS: BUN/Creatinine Ratio 15.1; Calcium 8.5 mg/dL (8.5-10.1); Magnesium 2.2 mg/dL (1.6-2.6)
[2021-02-08 09:20] VITALS: BP 107/68
[2021-02-08] MEDS: LACTULOSE 20Gm/30ML SOLN PO SCH ×2 (10:37→22:10)
[2021-02-08] MEDS: FOLIC ACID 1 MG TAB PO SCH (10:37)
[2021-02-08] MEDS: PANTOPRAZOLE 40 MG TAB PO SCH (10:38)
[2021-02-08] MEDS: MULTIPLE VITAMIN TAB PO SCH (10:38)
[2021-02-08] MEDS: FUROSEMIDE 20 MG TAB PO SCH (10:38)
[2021-02-08] MEDS: THIAMINE HCL 100 MG TAB PO SCH (10:39)
[2021-02-08] MEDS ORDERED: POTASSIUM CHL 20 Meq TABLET PO ONE (11:00)
[2021-02-08] MEDS: PHYTONADIONE(VitK) ORAL Susp 10mg/10ml(1mg/ml) PO SCH (11:00)
[2021-02-08] MEDS ORDERED: POTASSIUM EFFERVESENT TAB 25 MEQ PO ONE (12:00)
[2021-02-08] MEDS ORDERED: cefTRIAXone 1GM/50ML D5W 50 ML IV ONE (12:00)
[2021-02-08 13:10] VITALS: BP 120/51
[2021-02-08] MEDS: LORazepam 0.5 MG TAB PO PRN ×2 (13:36→22:45)
[2021-02-08 17:10] VITALS: BP 98/62
[2021-02-08 22:00] VITALS: BP 95/68
[2021-02-09 05:00] VITALS: BP 107/62
[2021-02-09 06:30] LABS: Basophils # (auto) 0.1 10 ^3/uL (0-0.2); Eosinophils # (auto) 0.5 10 ^3/uL (0-0.8); Mean Corpuscular Hemoglobin 29.2 pg (28.0-32.0); Mean Corpuscular Hgb Conc. 32.9 g/dL (32.0-36.0); Monocytes # (auto) 0.8 10 ^3/uL (0-1.3); Nucleated Red Blood Cells % 0.1 %
[2021-02-09 06:32] LABS: Basophils % (auto) 1.3 % (0.0-2.0); Eosinophils % (auto) 8.3 % (0.0-7.0); Hematocrit 22.8 % (41.0-53.0); Hemoglobin 7.5 g/dL (13.5-17.5); Lymphocytes # (auto) 0.9 10 ^3/uL (0.4-5.4); Lymphocytes % (auto) 15.4 % (10.0-50.0); Mean Corpuscular Volume 88.9 fL (80.0-100.0); Monocytes % (auto) 13.4 % (0.0-12.0); Neutrophils # (auto) 3.7 10 ^3/uL (1.6-8.6); Neutrophils % (auto) 61.6 % (37.0-80.0); Red Blood Cells 2.56 10^6/uL (4.5-5.90)
[2021-02-09 06:34] LABS: Potassium 3.4 mmol/L (3.5-5.1)
[2021-02-09 06:37] LABS: Red Cell Distribution Width 20.8 % (11.8-14.3)
[2021-02-09 06:51] LABS: BUN/Creatinine Ratio 15.9; Calcium 8.5 mg/dL (8.5-10.1); Magnesium 2.2 mg/dL (1.6-2.6)
[2021-02-09 09:00] VITALS: BP 126/56
[2021-02-09] MEDS: cefTRIAXone 1GM/50ML D5W 50 ML IV SCH (09:00)
[2021-02-09] MEDS: PHYTONADIONE(VitK) ORAL Susp 10mg/10ml(1mg/ml) PO SCH (10:00)
[2021-02-09] MEDS: LACTULOSE 20Gm/30ML SOLN PO SCH ×2 (10:14→20:41)
[2021-02-09] MEDS: FUROSEMIDE 20 MG TAB PO SCH (10:14)
[2021-02-09] MEDS: FOLIC ACID 1 MG TAB PO SCH (10:14)
[2021-02-09] MEDS: THIAMINE HCL 100 MG TAB PO SCH (10:14)
[2021-02-09] MEDS: PANTOPRAZOLE 40 MG TAB PO SCH (10:15)
[2021-02-09] MEDS: MULTIPLE VITAMIN TAB PO SCH (10:15)
[2021-02-09] MEDS: LORazepam 0.5 MG TAB PO PRN ×2 (11:36→20:41)
[2021-02-09 13:00] VITALS: BP 124/74
[2021-02-09 17:00] VITALS: BP 103/42
[2021-02-09 22:00] VITALS: BP 120/64
[2021-02-09] MEDS: HALOPERIDOL LACTATE 5 MG/ML INJ VIAL IM PRN (23:28)
[2021-02-10 05:43] LABS: Basophils # (auto) 0.1 10 ^3/uL (0-0.2); Eosinophils # (auto) 0.3 10 ^3/uL (0-0.8); Hemoglobin 7.5 g/dL (13.5-17.5); Lymphocytes # (auto) 0.8 10 ^3/uL (0.4-5.4); Monocytes # (auto) 0.6 10 ^3/uL (0-1.3); Neutrophils # (auto) 3.3 10 ^3/uL (1.6-8.6); Nucleated Red Blood Cells % 0.1 %; White Blood Cell 5.1 10^3/uL (4.4-10.8)
[2021-02-10 05:46] LABS: Basophils % (auto) 1.3 % (0.0-2.0); Eosinophils % (auto) 6.7 % (0.0-7.0); Hematocrit 22.9 % (41.0-53.0); Lymphocytes % (auto) 15.7 % (10.0-50.0); Mean Corpuscular Hemoglobin 29.2 pg (28.0-32.0); Mean Corpuscular Hgb Conc. 32.7 g/dL (32.0-36.0); Mean Corpuscular Volume 89.5 fL (80.0-100.0); Monocytes % (auto) 11.1 % (0.0-12.0); Neutrophils % (auto) 65.2 % (37.0-80.0); Red Blood Cells 2.55 10^6/uL (4.5-5.90)
[2021-02-10 06:00] VITALS: BP 113/66
[2021-02-10 06:00] LABS: INR 2.12 (0.9-1.15)
[2021-02-10 06:02] LABS: Potassium 3.3 mmol/L (3.5-5.1)
[2021-02-10 06:10] LABS: BUN/Creatinine Ratio 11.8; Bilirubin, Total 5.7 mg/dL (0.2-1.0); Calcium 8.1 mg/dL (8.5-10.1)
[2021-02-10 06:15] LABS: Red Cell Distribution Width 21.5 % (11.8-14.3)
[2021-02-10] MEDS: LORazepam 0.5 MG TAB PO PRN ×3 (06:49→23:30)
[2021-02-10] MEDS ORDERED: POTASSIUM CHL 20MEQ/100ML 100 ML IV ONE (08:30)
[2021-02-10 08:55] VITALS: BP 119/79
[2021-02-10] MEDS: cefTRIAXone 1GM/50ML D5W 50 ML IV SCH (09:59)
[2021-02-10] MEDS: LACTULOSE 20Gm/30ML SOLN PO SCH ×2 (10:00→21:36)
[2021-02-10] MEDS: THIAMINE HCL 100 MG TAB PO SCH (10:00)
[2021-02-10] MEDS: FOLIC ACID 1 MG TAB PO SCH (10:00)
[2021-02-10] MEDS: PANTOPRAZOLE 40 MG TAB PO SCH (10:01)
[2021-02-10] MEDS: MULTIPLE VITAMIN TAB PO SCH (10:01)
[2021-02-10] MEDS: PHYTONADIONE(VitK) ORAL Susp 10mg/10ml(1mg/ml) PO SCH (10:01)
[2021-02-10] MEDS: FUROSEMIDE 20 MG TAB PO SCH (10:03)
[2021-02-10 13:00] VITALS: BP 124/73
[2021-02-10 17:00] VITALS: BP 131/65
[2021-02-10] MEDS: HALOPERIDOL LACTATE 5 MG/ML INJ VIAL IM PRN (21:37)
[2021-02-10 22:00] VITALS: BP 114/78
[2021-02-11 05:00] VITALS: BP 126/73
[2021-02-11 08:11] VITALS: BP 114/58
[2021-02-11] MEDS: cefTRIAXone 1GM/50ML D5W 50 ML IV SCH (08:57)
[2021-02-11] MEDS: THIAMINE HCL 100 MG TAB PO SCH (09:43)
[2021-02-11] MEDS: MULTIPLE VITAMIN TAB PO SCH (09:43)
[2021-02-11] MEDS: PANTOPRAZOLE 40 MG TAB PO SCH (09:43)
[2021-02-11] MEDS: FOLIC ACID 1 MG TAB PO SCH (09:43)
[2021-02-11] MEDS: LORazepam 0.5 MG TAB PO PRN (09:43)
[2021-02-11] MEDS: FUROSEMIDE 20 MG TAB PO SCH (09:44)
[2021-02-11] MEDS: LACTULOSE 20Gm/30ML SOLN PO SCH ×2 (09:44→21:34)
[2021-02-11] MEDS: PHYTONADIONE(VitK) ORAL Susp 10mg/10ml(1mg/ml) PO SCH (09:48)
[2021-02-11 12:06] VITALS: BP 114/69
[2021-02-11 16:22] VITALS: BP 119/66
[2021-02-11 22:00] VITALS: BP 113/82
[2021-02-12 05:00] VITALS: BP 106/68
[2021-02-12] MEDS: cefTRIAXone 1GM/50ML D5W 50 ML IV SCH (08:30)
[2021-02-12 08:38] VITALS: BP 114/70
[2021-02-12 09:57] VITALS: BP 114/70
[2021-02-12] MEDS: MULTIPLE VITAMIN TAB PO SCH (09:57)
[2021-02-12] MEDS: FUROSEMIDE 20 MG TAB PO SCH (09:57)
[2021-02-12] MEDS: LACTULOSE 20Gm/30ML SOLN PO SCH ×2 (09:57→22:11)
[2021-02-12] MEDS: PANTOPRAZOLE 40 MG TAB PO SCH (09:57)
[2021-02-12] MEDS: THIAMINE HCL 100 MG TAB PO SCH (09:57)
[2021-02-12] MEDS: PHYTONADIONE(VitK) ORAL Susp 10mg/10ml(1mg/ml) PO SCH (09:58)
[2021-02-12] MEDS: FOLIC ACID 1 MG TAB PO SCH (09:58)
[2021-02-12] MEDS: IPRATROPIUM BROM 0.5 MG/2.5ML INH SOL NEB PRN ×2 (10:27→18:47)
[2021-02-12] MEDS: ALBUTEROL SULF 2.5 MG/0.5ML(0.5%) NEB SOLN NEB PRN ×2 (10:27→18:47)
[2021-02-12 11:08] LABS: Basophils # (auto) 0.1 10 ^3/uL (0-0.2); Basophils % (auto) 1.2 % (0.0-2.0); Eosinophils # (auto) 0.6 10 ^3/uL (0-0.8); Eosinophils % (auto) 9.1 % (0.0-7.0); Hematocrit 25.9 % (41.0-53.0); Hemoglobin 8.3 g/dL (13.5-17.5); Lymphocytes # (auto) 1.2 10 ^3/uL (0.4-5.4); Lymphocytes % (auto) 16.9 % (10.0-50.0); Mean Corpuscular Hemoglobin 29.2 pg (28.0-32.0); Mean Corpuscular Hgb Conc. 32.2 g/dL (32.0-36.0); Mean Corpuscular Volume 90.9 fL (80.0-100.0); Monocytes # (auto) 0.7 10 ^3/uL (0-1.3); Monocytes % (auto) 9.6 % (0.0-12.0); Neutrophils # (auto) 4.4 10 ^3/uL (1.6-8.6); Neutrophils % (auto) 63.2 % (37.0-80.0); Nucleated Red Blood Cells % 0.1 %; Red Blood Cells 2.85 10^6/uL (4.5-5.90)
[2021-02-12 11:10] LABS: Red Cell Distribution Width 22.4 % (11.8-14.3)
[2021-02-12 11:18] LABS: BUN/Creatinine Ratio 9.5; Calcium 8.3 mg/dL (8.5-10.1); Magnesium 2.1 mg/dL (1.6-2.6); Potassium 3.3 mmol/L (3.5-5.1)
[2021-02-12] MEDS: Ensure HIGH Protein Chocolate 8oz Bottle PO SCH ×2 (12:00→18:23)
[2021-02-12 13:00] VITALS: BP 110/68
[2021-02-12 17:00] VITALS: BP 112/80
[2021-02-12 22:00] VITALS: BP 125/80
[2021-02-13 05:15] VITALS: BP 126/76
[2021-02-13] MEDS: ALBUTEROL SULF 2.5 MG/0.5ML(0.5%) NEB SOLN NEB PRN (06:14)
[2021-02-13] MEDS: IPRATROPIUM BROM 0.5 MG/2.5ML INH SOL NEB PRN (06:14)
[2021-02-13 06:41] LABS: Basophils # (auto) 0.1 10 ^3/uL (0-0.2); Basophils % (auto) 1.2 % (0.0-2.0); Eosinophils # (auto) 0.6 10 ^3/uL (0-0.8); Eosinophils % (auto) 9.9 % (0.0-7.0); Hematocrit 24.5 % (41.0-53.0); Hemoglobin 7.8 g/dL (13.5-17.5); Lymphocytes # (auto) 0.8 10 ^3/uL (0.4-5.4); Lymphocytes % (auto) 14.1 % (10.0-50.0); Mean Corpuscular Hemoglobin 28.6 pg (28.0-32.0); Mean Corpuscular Hgb Conc. 31.7 g/dL (32.0-36.0); Mean Corpuscular Volume 90.4 fL (80.0-100.0); Monocytes # (auto) 0.6 10 ^3/uL (0-1.3); Monocytes % (auto) 11.1 % (0.0-12.0); Neutrophils # (auto) 3.7 10 ^3/uL (1.6-8.6); Neutrophils % (auto) 63.7 % (37.0-80.0); Red Blood Cells 2.71 10^6/uL (4.5-5.90); Red Cell Distribution Width 23.1 % (11.8-14.3); White Blood Cell 5.7 10^3/uL (4.4-10.8)
[2021-02-13 06:55] LABS: BUN/Creatinine Ratio 13.8; Calcium 8.4 mg/dL (8.5-10.1); Magnesium 1.6 mg/dL (1.6-2.6); Potassium 3.3 mmol/L (3.5-5.1)
[2021-02-13] MEDS: Ensure HIGH Protein Chocolate 8oz Bottle PO SCH ×2 (08:10→12:00)
[2021-02-13] MEDS: cefTRIAXone 1GM/50ML D5W 50 ML IV SCH (08:31)
[2021-02-13 09:00] VITALS: BP 96/58
[2021-02-13] MEDS: LACTULOSE 20Gm/30ML SOLN PO SCH (09:47)
[2021-02-13] MEDS: MULTIPLE VITAMIN TAB PO SCH (09:48)
[2021-02-13] MEDS: FOLIC ACID 1 MG TAB PO SCH (09:48)
[2021-02-13] MEDS: PHYTONADIONE(VitK) ORAL Susp 10mg/10ml(1mg/ml) PO SCH (09:48)
[2021-02-13] MEDS: PANTOPRAZOLE 40 MG TAB PO SCH (09:48)
[2021-02-13] MEDS: THIAMINE HCL 100 MG TAB PO SCH (09:48)
[2021-02-13] MEDS: FUROSEMIDE 20 MG TAB PO SCH (09:49)
[2021-02-13] MEDS ORDERED: POTASSIUM EFFERVESENT TAB 25 MEQ PO ONE (11:00)
[2021-02-13 13:00] VITALS: BP 113/64
[2021-02-13 16:35] VITALS: BP 119/70
[2021-02-13] MEDS: MAGNESIUM OXIDE 400 MG TAB PO SCH (21:15)
[2021-02-13 22:00] VITALS: BP 116/68
[2021-02-14 05:00] VITALS: BP 129/64
[2021-02-14 07:50] LABS: Albumin 2.3 g/dL (3.4-5.0); Calcium 8.4 mg/dL (8.5-10.1); Potassium 3.6 mmol/L (3.5-5.1)
[2021-02-14 07:54] LABS: BUN/Creatinine Ratio 14.1; Bilirubin, Total 4.6 mg/dL (0.2-1.0)
[2021-02-14 07:55] LABS: INR 2.05 (0.9-1.15)
[2021-02-14 08:00] VITALS: BP 128/70
[2021-02-14] MEDS: THIAMINE HCL 100 MG TAB PO SCH (10:00)
[2021-02-14 12:00] VITALS: BP 154/94
[2021-02-14] MEDS: LORazepam 0.5 MG TAB PO PRN (14:37)
[2021-02-14] MEDS: cefTRIAXone 1GM/50ML D5W 50 ML IV SCH (14:52)
[2021-02-14] MEDS: FOLIC ACID 1 MG TAB PO SCH (14:53)
[2021-02-14] MEDS: POTASSIUM EFFERVESENT TAB 25 MEQ PO SCH (14:54)
[2021-02-14] MEDS: FUROSEMIDE 20 MG TAB PO SCH (14:55)
[2021-02-14] MEDS: PANTOPRAZOLE 40 MG TAB PO SCH (14:56)
[2021-02-14] MEDS: MULTIPLE VITAMIN TAB PO SCH (14:56)
[2021-02-14] MEDS: MAGNESIUM OXIDE 400 MG TAB PO SCH ×2 (14:56→21:03)
[2021-02-14] MEDS: PHYTONADIONE(VitK) ORAL Susp 10mg/10ml(1mg/ml) PO SCH (14:57)
[2021-02-14 17:00] VITALS: BP 113/65
[2021-02-14 22:00] VITALS: BP 98/60
[2021-02-15] MEDS: LORazepam 0.5 MG TAB PO PRN ×2 (04:41→11:22)
[2021-02-15 05:27] VITALS: BP 110/68
[2021-02-15 09:00] VITALS: BP 111/60
[2021-02-15] MEDS: FLUCONAZOLE 200MG/100ML 100 ML IV SCH (10:05)
[2021-02-15] MEDS: cefTRIAXone 1GM/50ML D5W 50 ML IV SCH (10:05)
[2021-02-15] MEDS: FUROSEMIDE 40 MG/4 ML VIAL IV SCH (10:06)
[2021-02-15] MEDS: FOLIC ACID 1 MG TAB PO SCH (10:07)
[2021-02-15] MEDS: THIAMINE HCL 100 MG TAB PO SCH (10:07)
[2021-02-15] MEDS: POTASSIUM EFFERVESENT TAB 25 MEQ PO SCH (10:08)
[2021-02-15] MEDS: MULTIPLE VITAMIN TAB PO SCH (10:09)
[2021-02-15] MEDS: PANTOPRAZOLE 40 MG TAB PO SCH (10:09)
[2021-02-15] MEDS: MAGNESIUM OXIDE 400 MG TAB PO SCH ×2 (10:19→21:11)
[2021-02-15] MEDS: PHYTONADIONE(VitK) ORAL Susp 10mg/10ml(1mg/ml) PO SCH (10:20)
[2021-02-15 10:25] LABS: Hepatitis B Surface Antibody Negative (Negative)
[2021-02-15 10:59] LABS: Hepatitis A Total Antibody Positive (Negative)
[2021-02-15 11:13] VITALS: BP 112/69
[2021-02-15 11:42] LABS: Hepatitis C Antibody Negative (Negative)
[2021-02-15 13:00] VITALS: BP 112/81
[2021-02-15 17:00] VITALS: BP 116/83
[2021-02-15 22:00] VITALS: BP 106/71
[2021-02-16 05:00] VITALS: BP 124/75
[2021-02-16 06:09] LABS: Basophils # (auto) 0.1 10 ^3/uL (0-0.2); Basophils % (auto) 1.2 % (0.0-2.0); Eosinophils # (auto) 0.6 10 ^3/uL (0-0.8); Hemoglobin 7.5 g/dL (13.5-17.5); Monocytes # (auto) 0.7 10 ^3/uL (0-1.3); Nucleated Red Blood Cells % 0.1 %; White Blood Cell 5.4 10^3/uL (4.4-10.8)
[2021-02-16 06:11] LABS: Eosinophils % (auto) 11.5 % (0.0-7.0); Hematocrit 23.6 % (41.0-53.0); Lymphocytes # (auto) 0.8 10 ^3/uL (0.4-5.4); Lymphocytes % (auto) 15.4 % (10.0-50.0); Mean Corpuscular Hemoglobin 28.3 pg (28.0-32.0); Mean Corpuscular Hgb Conc. 31.8 g/dL (32.0-36.0); Mean Corpuscular Volume 89.2 fL (80.0-100.0); Monocytes % (auto) 13.5 % (0.0-12.0); Neutrophils # (auto) 3.2 10 ^3/uL (1.6-8.6); Neutrophils % (auto) 58.4 % (37.0-80.0); Red Blood Cells 2.65 10^6/uL (4.5-5.90)
[2021-02-16 06:14] LABS: Red Cell Distribution Width 22.2 % (11.8-14.3)
[2021-02-16 06:19] LABS: Calcium 8.4 mg/dL (8.5-10.1); Potassium 3.8 mmol/L (3.5-5.1)
[2021-02-16 06:22] LABS: BUN/Creatinine Ratio 20.4
[2021-02-16 08:00] VITALS: BP 103/66
[2021-02-16 09:00] VITALS: BP 103/66
[2021-02-16 12:32] VITALS: BP 114/82
[2021-02-16] MEDS: cefTRIAXone 1GM/50ML D5W 50 ML IV SCH (14:19)
[2021-02-16] MEDS: FLUCONAZOLE 200MG/100ML 100 ML IV SCH (14:20)
[2021-02-16] MEDS: THIAMINE HCL 100 MG TAB PO SCH (14:21)
[2021-02-16] MEDS: FUROSEMIDE 40 MG/4 ML VIAL IV SCH (14:21)
[2021-02-16] MEDS: FOLIC ACID 1 MG TAB PO SCH (14:21)
[2021-02-16] MEDS: POTASSIUM EFFERVESENT TAB 25 MEQ PO SCH (14:21)
[2021-02-16] MEDS: MULTIPLE VITAMIN TAB PO SCH (14:22)
[2021-02-16] MEDS: MAGNESIUM OXIDE 400 MG TAB PO SCH ×2 (14:22→22:29)
[2021-02-16] MEDS: PANTOPRAZOLE 40 MG TAB PO SCH (14:23)
[2021-02-16] MEDS: PHYTONADIONE(VitK) ORAL Susp 10mg/10ml(1mg/ml) PO SCH (14:26)
[2021-02-16] MEDS: Ensure HIGH Protein Chocolate 8oz Bottle PO SCH ×3 (14:29→18:15)
[2021-02-16 16:31] VITALS: BP 143/74
[2021-02-16 22:22] VITALS: BP 140/40
[2021-02-16] MEDS: HALOPERIDOL LACTATE 5 MG/ML INJ VIAL IM PRN (22:47)
[2021-02-17 05:59] VITALS: BP 134/77
[2021-02-17 08:57] VITALS: BP 113/65
[2021-02-17] MEDS: FUROSEMIDE 40 MG/4 ML VIAL IV SCH (09:55)
[2021-02-17] MEDS: THIAMINE HCL 100 MG TAB PO SCH (09:56)
[2021-02-17] MEDS: FOLIC ACID 1 MG TAB PO SCH (09:57)
[2021-02-17] MEDS: MAGNESIUM OXIDE 400 MG TAB PO SCH ×2 (09:57→23:02)
[2021-02-17] MEDS: LORazepam 0.5 MG TAB PO PRN ×3 (09:57→23:02)
[2021-02-17] MEDS: MULTIPLE VITAMIN TAB PO SCH (09:57)
[2021-02-17] MEDS: POTASSIUM EFFERVESENT TAB 25 MEQ PO SCH (09:57)
[2021-02-17] MEDS: cefTRIAXone 1GM/50ML D5W 50 ML IV SCH (09:57)
[2021-02-17] MEDS: PANTOPRAZOLE 40 MG TAB PO SCH (09:57)
[2021-02-17] MEDS: FLUCONAZOLE 200MG/100ML 100 ML IV SCH (09:58)
[2021-02-17] MEDS: Ensure HIGH Protein Chocolate 8oz Bottle PO SCH ×3 (09:59→18:47)
[2021-02-17 12:26] VITALS: BP 128/92
[2021-02-17] MEDS: PHYTONADIONE(VitK) ORAL Susp 10mg/10ml(1mg/ml) PO SCH (12:29)
[2021-02-17] MEDS: HYDROcodone-ACET 5/325MG TAB PO PRN (14:19)
[2021-02-17 16:33] VITALS: BP 117/66
[2021-02-17 21:39] VITALS: BP 130/81
[2021-02-18 05:26] VITALS: BP 128/61
[2021-02-18] MEDS: Ensure HIGH Protein Chocolate 8oz Bottle PO SCH (08:00)
[2021-02-18 09:00] VITALS: BP 101/49
[2021-02-18] MEDS: FLUCONAZOLE 200MG/100ML 100 ML IV SCH (09:50)
[2021-02-18] MEDS: cefTRIAXone 1GM/50ML D5W 50 ML IV SCH (09:50)
[2021-02-18] MEDS: FOLIC ACID 1 MG TAB PO SCH (09:52)
[2021-02-18] MEDS: POTASSIUM EFFERVESENT TAB 25 MEQ PO SCH (09:52)
[2021-02-18] MEDS: MAGNESIUM OXIDE 400 MG TAB PO SCH (09:52)
[2021-02-18] MEDS: THIAMINE HCL 100 MG TAB PO SCH (09:52)
[2021-02-18] MEDS: PANTOPRAZOLE 40 MG TAB PO SCH (09:53)
[2021-02-18] MEDS: MULTIPLE VITAMIN TAB PO SCH (09:53)
[2021-02-18] MEDS: PHYTONADIONE(VitK) ORAL Susp 10mg/10ml(1mg/ml) PO SCH (09:53)
[2021-02-18] MEDS: HYDROcodone-ACET 5/325MG TAB PO PRN (09:55)
[2021-02-18] MEDS: FUROSEMIDE 40 MG/4 ML VIAL IV SCH (09:55)
[2021-02-18] MEDS: LORazepam 0.5 MG TAB PO PRN (11:21)
[2021-02-18 13:00] VITALS: BP 128/89
== END 2021-02-18 14:00 | disposition hospice, home (50) | DRG 432 ==
LOC: EDBD 12:47 → ER 12:47 → TELE 19:17 → ICU WEST 01-25 08:59 → TELE-WESTW 02-06 13:29 → WEST WING 02-07 12:13
PROVIDERS: ADMIT Nurse Practitioner Acute Care; ATTEND Internal Medicine
PROC: 30233N1 Transfusion of Nonautologous Red Blood Cells into Peripheral Vein, Percutaneous Approach (ICD-10-PCS; 2021-01-24)
PROC: 02HV33Z Insertion of Infusion Device into Superior Vena Cava, Percutaneous Approach (ICD-10-PCS; principal; 2021-01-25)
PROC: 30233P1 Transfusion of Nonautologous Frozen Red Cells into Peripheral Vein, Percutaneous Approach (ICD-10-PCS; 2021-01-25)
PROC: 4A143B0 Monitoring of Venous Pressure, Central, Percutaneous Approach (ICD-10-PCS; 2021-01-25)
PROC: 0T7C8ZZ Dilation of Bladder Neck, Via Natural or Artificial Opening Endoscopic (ICD-10-PCS; 2021-01-26)
PROC: 0T9B80Z Drainage of Bladder with Drainage Device, Via Natural or Artificial Opening Endoscopic (ICD-10-PCS; 2021-01-26)
PROC: 5A1955Z Respiratory Ventilation, Greater than 96 Consecutive Hours (ICD-10-PCS; 2021-01-26)
PROC: 0BH17EZ Insertion of Endotracheal Airway into Trachea, Via Natural or Artificial Opening (ICD-10-PCS; 2021-01-26)
PROC: 5A09357 Assistance with Respiratory Ventilation, Less than 24 Consecutive Hours, Continuous Positive Airway Pressure (ICD-10-PCS; 2021-01-26)
PROC: 03HY32Z Insertion of Monitoring Device into Upper Artery, Percutaneous Approach (ICD-10-PCS; 2021-01-27)
PROC: 4A133B1 Monitoring of Arterial Pressure, Peripheral, Percutaneous Approach (ICD-10-PCS; 2021-01-27)
PROC: 4A133J1 Monitoring of Arterial Pulse, Peripheral, Percutaneous Approach (ICD-10-PCS; 2021-01-27)
PROC: 0DB98ZX Excision of Duodenum, Via Natural or Artificial Opening Endoscopic, Diagnostic (ICD-10-PCS; 2021-01-28)
PROC: 0DB68ZX Excision of Stomach, Via Natural or Artificial Opening Endoscopic, Diagnostic (ICD-10-PCS; 2021-01-28)
PROC: 0DB38ZX Excision of Lower Esophagus, Via Natural or Artificial Opening Endoscopic, Diagnostic (ICD-10-PCS; 2021-01-28)
PROC: 0W993ZZ Drainage of Right Pleural Cavity, Percutaneous Approach (ICD-10-PCS; 2021-01-31)
DX: K70.31 Alcoholic cirrhosis of liver with ascites (principal); G93.41 Metabolic encephalopathy; E43 Unspecified severe protein-calorie malnutrition; J96.01 Acute respiratory failure with hypoxia; R57.8 Other shock; K26.4 Chronic or unspecified duodenal ulcer with hemorrhage; K22.11 Ulcer of esophagus with bleeding; K29.91 Gastroduodenitis, unspecified, with bleeding; D68.9 Coagulation defect, unspecified; N39.0 Urinary tract infection, site not specified; J98.11 Atelectasis; J90 Pleural effusion, not elsewhere classified; S30.1XXA Contusion of abdominal wall, initial encounter; D64.9 Anemia, unspecified; E66.9 Obesity, unspecified; N32.0 Bladder-neck obstruction; E87.6 Hypokalemia; K72.90 Hepatic failure, unspecified without coma; I10 Essential (primary) hypertension; K21.00 Gastro-esophageal reflux disease with esophagitis, without bleeding; F41.9 Anxiety disorder, unspecified; R00.1 Bradycardia, unspecified; Z20.822 Contact with and (suspected) exposure to COVID-19; F10.10 Alcohol abuse, uncomplicated; R74.8 Abnormal levels of other serum enzymes; K44.9 Diaphragmatic hernia without obstruction or gangrene; R31.9 Hematuria, unspecified; R32 Unspecified urinary incontinence; W18.39XA Other fall on same level, initial encounter; Y93.89 Activity, other specified; Z68.37 Body mass index [BMI] 37.0-37.9, adult; Z78.1 Physical restraint status; Y92.89 Other specified places as the place of occurrence of the external cause; Y99.8 Other external cause status
CPT/HCPCS: 36415; 36600; 70450; 71045; 72125; 74176; 80048; 80053; 80076; 80202; 80307; 80320; 81001; 82040; 82140; 82805; 82962; 83605; 83735; 83880; 83986; 84100; 84154; 84439; 84443; 84478; 84481; 84484; 85025; 85610; 85730; 86704; 86706; 86708; 86803; 86850; 86900; 86901; 86920; 87040; 87070; 87081; 87086; 87088; 87205; 87340; 87426; 89051; 92610; 93005; 93306; 94002; 94003; 94640; 94660; 96365; 96367; 96375; 97110; 97116; 97530; C9113; G0378; J0330; J0696; J1450; J2250; J2543; J2704; J3430; J3480; J7060; P9047

== ENCOUNTER 2021-06-19 11:04 | Inpatient (IN) | payer OTHER ==
[~2021-06-19] VITALS: Ht 172.7 cm; Wt 72.5 kg
[2021-06-19] MEDS ORDERED: FUROSEMIDE 100 MG/10ML VIAL IV ONE (12:45)
[2021-06-19] MEDS ORDERED: LACTULOSE 20Gm/30ML SOLN PO ONE (12:45)
[2021-06-19 12:56] LABS: Albumin 2.2 g/dL (3.4-5.0); BUN/Creatinine Ratio 6.8; Calcium 8.4 mg/dL (8.5-10.1); Potassium 3.1 mmol/L (3.5-5.1)
[2021-06-19 13:01] LABS: Bilirubin, Total 2.8 mg/dL (0.2-1.0); Lactic Acid w/Reflex 2.2 mmol/L (0.4-2.0); Total Protein 6.5 g/dL (6.4-8.2)
[2021-06-19 13:31] LABS: Basophils # (auto) 0 10 ^3/uL (0-0.2); Basophils % (auto) 1.4 % (0.0-2.0); Eosinophils # (auto) 0.1 10 ^3/uL (0-0.8); Lymphocytes % (auto) 23.1 % (10.0-50.0); Nucleated Red Blood Cells % 0.1 %
[2021-06-19 13:34] LABS: Eosinophils % (auto) 4.7 % (0.0-7.0); Hematocrit 26.2 % (41.0-53.0); Hemoglobin 8.5 g/dL (13.5-17.5); Lymphocytes # (auto) 0.6 10 ^3/uL (0.4-5.4); Mean Corpuscular Hgb Conc. 32.3 g/dL (32.0-36.0); Mean Corpuscular Volume 77.4 fL (80.0-100.0); Monocytes # (auto) 0.4 10 ^3/uL (0-1.3); Neutrophils # (auto) 1.5 10 ^3/uL (1.6-8.6); Neutrophils % (auto) 55.8 % (37.0-80.0); Red Blood Cells 3.38 10^6/uL (4.5-5.90); White Blood Cell 2.8 10^3/uL (4.4-10.8)
[2021-06-19 13:45] LABS: Red Cell Distribution Width 20.2 % (11.8-14.3)
[2021-06-19] MEDS ORDERED: LIDOCAINE 2% JELLY 11ml (GLYDO) UR ONE (13:45)
[2021-06-19] MEDS ORDERED: ALBUTEROL SULF 2.5 MG/0.5ML(0.5%) NEB SOLN NEB ONE (15:45)
[2021-06-19] MEDS ORDERED: IPRATROPIUM BROM 0.5 MG/2.5ML INH SOL NEB ONE ×2 (15:45→18:45)
[2021-06-19] MEDS ORDERED: POTASSIUM EFFERVESENT TAB 25 MEQ PO ONE (17:15)
[2021-06-19] MEDS ORDERED: NITROGLYCERIN 0.4 MG SL TAB SL PRN (17:15)
[2021-06-19] MEDS ORDERED: MORPHINE SULFATE INJECTION 2 MG/ML SYRG IV PRN (17:15)
[2021-06-19] MEDS: POTASSIUM CHL 20MEQ/100ML 100 ML IV SCH ×2 (18:30→22:08)
[2021-06-19] MEDS ORDERED: FOLIC ACID 1 MG TAB PO ONE (18:45)
[2021-06-19] MEDS ORDERED: BUDESONIDE (INHALATION) 0.5 MG/2 ML NEB NEB ONE (18:45)
[2021-06-19] MEDS ORDERED: SUCRALFATE 1 GM/10 ML ORAL SUSP PO ONE (18:45)
[2021-06-19] MEDS ORDERED: PANTOPRAZOLE 40 MG/10 ML VIAL INJ IV ONE (18:45)
[2021-06-19] MEDS ORDERED: DOCUSATE SOD 100 MG CAP PO PRN (18:45)
[2021-06-19] MEDS ORDERED: hydrALAZINE HCL 20 MG/ML VL IV PRN (18:45)
[2021-06-19] MEDS ORDERED: ONDANSETRON HCL 4 MG/2 ML VIAL IV PRN (18:45)
[2021-06-19] MEDS ORDERED: HYDROcodone-ACET 5/325MG TAB PO ONE (18:45)
[2021-06-19] MEDS ORDERED: ACETAMINOPHEN 325 MG TAB PO PRN (18:45)
[2021-06-19] MEDS ORDERED: FERROUS SULFATE 325mg EC TAB PO ONE (18:45)
[2021-06-19] MEDS ORDERED: cefTRIAXone 1GM/50ML D5W 50 ML IV ONE (19:00)
[2021-06-19] MEDS ORDERED: AZITHROMYCIN 500MG/ 250ML 250 ML IV ONE (19:00)
[2021-06-19 20:26] LABS: Magnesium 1.8 mg/dL (1.6-2.6)
[2021-06-19 20:37] LABS: INR 1.59 (0.9-1.15); Partial Thromboplastin Time 37.6 sec (23.6-33.0)
[2021-06-19 22:00] VITALS: BP_SYST 126; BP_SYST 131; BP_DIAS 74; BP_DIAS 84
[2021-06-19] MEDS ORDERED: IPRATROPIUM BROM 0.5 MG/2.5ML INH SOL NEB SCH (22:00)
[2021-06-19] MEDS: LACTULOSE 20Gm/30ML SOLN PO SCH (22:00)
[2021-06-19] MEDS ORDERED: BUDESONIDE (INHALATION) 0.5 MG/2 ML NEB NEB SCH (22:00)
[2021-06-19] MEDS: ATORVASTATIN 20 MG TAB PO SCH (22:05)
[2021-06-19] MEDS: SUCRALFATE 1 GM/10 ML ORAL SUSP PO SCH (22:05)
[2021-06-19] MEDS: rifAXIMin 550 MG TAB PO SCH (22:05)
[2021-06-19 22:25] VITALS: BP 122/82
[2021-06-20] MEDS ORDERED: FURO40TA4 (00:17)
[2021-06-20] MEDS ORDERED: ESCI-28 PO (00:17)
[2021-06-20] MEDS ORDERED: LACT10SO70 PO (00:20)
[2021-06-20] MEDS ORDERED: PANT40T (00:20)
[2021-06-20] MEDS ORDERED: LORA2INJ PO (00:20)
[2021-06-20] MEDS: MORPHINE SULFATE INJECTION 2 MG/ML SYRG IV PRN (00:52)
[2021-06-20 04:37] VITALS: BP 105/63
[2021-06-20] MEDS: LACTULOSE 20Gm/30ML SOLN PO SCH ×3 (05:38→21:39)
[2021-06-20 06:27] LABS: Basophils # (auto) 0 10 ^3/uL (0-0.2); Eosinophils # (auto) 0.2 10 ^3/uL (0-0.8); Monocytes # (auto) 0.6 10 ^3/uL (0-1.3); White Blood Cell 3.8 10^3/uL (4.4-10.8)
[2021-06-20 06:31] LABS: Basophils % (auto) 0.8 % (0.0-2.0); Eosinophils % (auto) 4.2 % (0.0-7.0); Hematocrit 23.4 % (41.0-53.0); Hemoglobin 7.8 g/dL (13.5-17.5); Mean Corpuscular Hemoglobin 25.5 pg (28.0-32.0); Mean Corpuscular Hgb Conc. 33.2 g/dL (32.0-36.0); Mean Corpuscular Volume 76.9 fL (80.0-100.0); Monocytes % (auto) 15.5 % (0.0-12.0); Neutrophils % (auto) 53.5 % (37.0-80.0); Nucleated Red Blood Cells % 0.2 %; Red Blood Cells 3.04 10^6/uL (4.5-5.90); Red Cell Distribution Width 19.8 % (11.8-14.3)
[2021-06-20] MEDS: SUCRALFATE 1 GM/10 ML ORAL SUSP PO SCH ×4 (06:32→21:40)
[2021-06-20 06:45] LABS: Albumin 1.8 g/dL (3.4-5.0); Potassium 3.1 mmol/L (3.5-5.1)
[2021-06-20 06:52] LABS: INR 1.66 (0.9-1.15); Partial Thromboplastin Time 43.9 sec (23.6-33.0)
[2021-06-20 06:54] LABS: BUN/Creatinine Ratio 8.4; Bilirubin, Total 2.2 mg/dL (0.2-1.0); CRP High Sensitivity 0.64 mg/dL (< 0.3); Calcium 8.1 mg/dL (8.5-10.1); Magnesium 1.9 mg/dL (1.6-2.6); Phosphorus 2.8 mg/dL (2.5-4.90); Total Protein 5.4 g/dL (6.4-8.2); Uric Acid 9.7 mg/dL (3.5-7.2)
[2021-06-20 07:25] LABS: Thyroid Stimulating Hormone 2.44 uIU/mL (0.358-3.74)
[2021-06-20] MEDS: FERROUS SULFATE 325mg EC TAB PO SCH ×3 (08:00→18:00)
[2021-06-20 09:00] VITALS: BP 109/69
[2021-06-20] MEDS: cefTRIAXone 1GM/50ML D5W 50 ML IV SCH (09:00)
[2021-06-20] MEDS: CYANOCOBALAMIN 500 MCG TAB PO SCH (10:00)
[2021-06-20] MEDS: rifAXIMin 550 MG TAB PO SCH ×2 (10:00→21:40)
[2021-06-20] MEDS: AZITHROMYCIN 500MG/ 250ML 250 ML IV SCH (10:26)
[2021-06-20] MEDS: PANTOPRAZOLE 40 MG/10 ML VIAL INJ IV SCH (10:26)
[2021-06-20] MEDS: FOLIC ACID 1 MG TAB PO SCH (10:27)
[2021-06-20] MEDS: CHOLECALCIFEROL (VITD3) 2,000 UNIT CAP/TAB PO SCH (10:27)
[2021-06-20] MEDS ORDERED: IOHEXOL 350 MG/ML 100ML IJ ONE (10:52)
[2021-06-20] MEDS: IPRATROPIUM BROM 0.5 MG/2.5ML INH SOL NEB PRN (12:34)
[2021-06-20] MEDS: ALBUTEROL SULF 2.5 MG/0.5ML(0.5%) NEB SOLN NEB PRN (12:34)
[2021-06-20 13:00] VITALS: BP 105/66
[2021-06-20] MEDS ORDERED: FUROSEMIDE 20 MG/2 ML VIAL IV ONE (13:30)
[2021-06-20 17:00] VITALS: BP 116/83
[2021-06-20] MEDS: TAMSULOSIN HYDROCHLORIDE 0.4 MG CAP PO SCH (18:00)
[2021-06-20 21:15] VITALS: BP 110/70
[2021-06-20] MEDS: ATORVASTATIN 20 MG TAB PO SCH (21:40)
[2021-06-20] MEDS: LORazepam 2MG/ML-1ML VIAL IV PRN (21:50)
[2021-06-21] MEDS: IPRATROPIUM BROM 0.5 MG/2.5ML INH SOL NEB PRN ×4 (00:21→16:49)
[2021-06-21] MEDS: ALBUTEROL SULF 2.5 MG/0.5ML(0.5%) NEB SOLN NEB PRN ×4 (00:21→16:49)
[2021-06-21 03:02] LABS: Urine Bacteria NONE SEEN /hpf (None Seen); Urine Blood 3+ /uL (Negative); Urine Mucus FEW (None Seen); Urine Specific Gravity > 1.050 (1.001-1.035); Urine WBC 29 /hpf (0 - 3)
[2021-06-21 03:18] LABS: Amphetamine Screen, Urine NEGATIVE (NEGATIVE); Barbiturate Scree,Urine NEGATIVE (NEGATIVE); Benzodiazephine Screen, Urine NEGATIVE (NEGATIVE); Cannabinoid Screen, Urine NEGATIVE (NEGATIVE); Cocaine Screen, Urine NEGATIVE (NEGATIVE); Opiate Scree,Urine POSITIVE (NEGATIVE); Phencyclidine Screen, Urine NEGATIVE (NEGATIVE)
[2021-06-21 05:14] VITALS: BP 106/66
[2021-06-21] MEDS: LACTULOSE 20Gm/30ML SOLN PO SCH ×3 (06:00→22:00)
[2021-06-21] MEDS: SUCRALFATE 1 GM/10 ML ORAL SUSP PO SCH ×4 (06:18→22:00)
[2021-06-21] MEDS: FERROUS SULFATE 325mg EC TAB PO SCH ×3 (08:00→18:00)
[2021-06-21 08:37] VITALS: BP 133/75
[2021-06-21] MEDS: cefTRIAXone 1GM/50ML D5W 50 ML IV SCH (09:00)
[2021-06-21] MEDS: FUROSEMIDE 20 MG/2 ML VIAL IV SCH (09:53)
[2021-06-21] MEDS: rifAXIMin 550 MG TAB PO SCH ×2 (09:54→22:00)
[2021-06-21] MEDS: CYANOCOBALAMIN 500 MCG TAB PO SCH (09:54)
[2021-06-21] MEDS: PANTOPRAZOLE 40 MG/10 ML VIAL INJ IV SCH (09:54)
[2021-06-21] MEDS: FOLIC ACID 1 MG TAB PO SCH (09:54)
[2021-06-21] MEDS: AZITHROMYCIN 500MG/ 250ML 250 ML IV SCH (09:54)
[2021-06-21] MEDS: CHOLECALCIFEROL (VITD3) 2,000 UNIT CAP/TAB PO SCH (09:54)
[2021-06-21] MEDS ORDERED: FUROSEMIDE 20 MG/2 ML VIAL IV ONE (12:15)
[2021-06-21 13:00] VITALS: BP 110/69
[2021-06-21 16:55] VITALS: BP 113/76
[2021-06-21] MEDS: TAMSULOSIN HYDROCHLORIDE 0.4 MG CAP PO SCH (18:00)
[2021-06-21 22:00] VITALS: BP 108/63
[2021-06-21] MEDS: Ensure Enlive Chocolate 8oz Bottle PO SCH (22:00)
[2021-06-21] MEDS: ATORVASTATIN 20 MG TAB PO SCH (22:00)
[2021-06-21] MEDS ORDERED: ROCURONIUM 10MG/ML 10ML VIAL IV ONE (22:43)
[2021-06-21] MEDS ORDERED: ETOMIDATE (2MG/ML) 20ML VIAL IV ONE (22:43)
[2021-06-21] MEDS ORDERED: methylPREDNISolone SOD SUCC 125 MG/2 ML VL ONE (22:48)
[2021-06-21] MEDS ORDERED: methylPREDNISolone SOD SUCC 125 MG/2 ML VL IV ONE (23:30)
[2021-06-22 05:00] VITALS: BP 125/61
[2021-06-22] MEDS: methylPREDNISolone SOD SUCC 40 MG/ML VL IV SCH ×2 (05:51→13:18)
[2021-06-22] MEDS: LACTULOSE 20Gm/30ML SOLN PO SCH ×4 (05:51→23:14)
[2021-06-22 06:00] VITALS: BP 137/87
[2021-06-22 06:17] LABS: Potassium 3.3 mmol/L (3.5-5.1)
[2021-06-22 06:22] LABS: Albumin 1.9 g/dL (3.4-5.0); BUN/Creatinine Ratio 7.9; Calcium 8.7 mg/dL (8.5-10.1)
[2021-06-22 06:25] LABS: Bilirubin, Total 1.9 mg/dL (0.2-1.0)
[2021-06-22] MEDS: SUCRALFATE 1 GM/10 ML ORAL SUSP PO SCH ×5 (07:29→23:15)
[2021-06-22] MEDS: Ensure Enlive Chocolate 8oz Bottle PO SCH ×4 (07:30→23:15)
[2021-06-22] MEDS: FERROUS SULFATE 325mg EC TAB PO SCH ×3 (08:00→18:00)
[2021-06-22 09:00] VITALS: BP 140/66
[2021-06-22 09:43] LABS: Basophils # (auto) 0 10 ^3/uL (0-0.2); Eosinophils # (auto) 0 10 ^3/uL (0-0.8); Hemoglobin 7.8 g/dL (13.5-17.5); Lymphocytes # (auto) 0.3 10 ^3/uL (0.4-5.4); Monocytes # (auto) 0.1 10 ^3/uL (0-1.3); Neutrophils # (auto) 2.7 10 ^3/uL (1.6-8.6); Nucleated Red Blood Cells % 0.1 %
[2021-06-22 09:45] LABS: Basophils % (auto) 0.1 % (0.0-2.0); Hematocrit 23.3 % (41.0-53.0); Mean Corpuscular Hemoglobin 25.7 pg (28.0-32.0); Mean Corpuscular Hgb Conc. 33.7 g/dL (32.0-36.0); Mean Corpuscular Volume 76.4 fL (80.0-100.0); Neutrophils % (auto) 86.9 % (37.0-80.0); Red Blood Cells 3.05 10^6/uL (4.5-5.90); Red Cell Distribution Width 19.9 % (11.8-14.3); White Blood Cell 3.1 10^3/uL (4.4-10.8)
[2021-06-22] MEDS: cefTRIAXone 1GM/50ML D5W 50 ML IV SCH (09:53)
[2021-06-22] MEDS: PANTOPRAZOLE 40 MG/10 ML VIAL INJ IV SCH (09:53)
[2021-06-22] MEDS: FUROSEMIDE 20 MG/2 ML VIAL IV SCH (09:54)
[2021-06-22] MEDS: AZITHROMYCIN 500MG/ 250ML 250 ML IV SCH (10:25)
[2021-06-22] MEDS ORDERED: FUROSEMIDE 20 MG/2 ML VIAL IV ONE (12:15)
[2021-06-22 13:00] VITALS: BP 126/74
[2021-06-22] MEDS: rifAXIMin 550 MG TAB PO SCH ×3 (13:03→23:15)
[2021-06-22] MEDS: FOLIC ACID 1 MG TAB PO SCH (13:03)
[2021-06-22] MEDS: CHOLECALCIFEROL (VITD3) 2,000 UNIT CAP/TAB PO SCH (13:03)
[2021-06-22] MEDS: CYANOCOBALAMIN 500 MCG TAB PO SCH (13:05)
[2021-06-22 17:00] VITALS: BP 118/76
[2021-06-22] MEDS: TAMSULOSIN HYDROCHLORIDE 0.4 MG CAP PO SCH (18:00)
[2021-06-22] MEDS: LORazepam 2MG/ML-1ML VIAL IV PRN (20:54)
[2021-06-22 22:00] VITALS: BP 120/66
[2021-06-22] MEDS: ATORVASTATIN 20 MG TAB PO SCH ×2 (22:00→23:15)
[2021-06-23] VITALS (10 sets, daily range): BP systolic 106–127; BP diastolic 58–91
[2021-06-23] MEDS: SUCRALFATE 1 GM/10 ML ORAL SUSP PO SCH ×4 (04:35→21:01)
[2021-06-23] MEDS: LORazepam 2MG/ML-1ML VIAL IV PRN ×2 (04:35→10:54)
[2021-06-23] MEDS: LACTULOSE 20Gm/30ML SOLN PO SCH ×3 (04:35→21:01)
[2021-06-23] MEDS: Ensure Enlive Chocolate 8oz Bottle PO SCH ×4 (04:36→21:02)
[2021-06-23 05:41] LABS: Basophils # (auto) 0 10 ^3/uL (0-0.2); Basophils % (auto) 0.1 % (0.0-2.0); Eosinophils # (auto) 0 10 ^3/uL (0-0.8); Neutrophils # (auto) 3.7 10 ^3/uL (1.6-8.6); White Blood Cell 4.8 10^3/uL (4.4-10.8)
[2021-06-23 05:43] LABS: Hematocrit 21.2 % (41.0-53.0); Lymphocytes # (auto) 0.4 10 ^3/uL (0.4-5.4); Lymphocytes % (auto) 9.3 % (10.0-50.0); Mean Corpuscular Hemoglobin 25.3 pg (28.0-32.0); Mean Corpuscular Hgb Conc. 33.2 g/dL (32.0-36.0); Mean Corpuscular Volume 76.1 fL (80.0-100.0); Monocytes # (auto) 0.7 10 ^3/uL (0-1.3); Monocytes % (auto) 13.9 % (0.0-12.0); Neutrophils % (auto) 76.7 % (37.0-80.0); Red Blood Cells 2.78 10^6/uL (4.5-5.90)
[2021-06-23 05:47] LABS: Red Cell Distribution Width 20.4 % (11.8-14.3)
[2021-06-23 06:08] LABS: Albumin 1.8 g/dL (3.4-5.0); Calcium 8.9 mg/dL (8.5-10.1); Potassium 3.2 mmol/L (3.5-5.1)
[2021-06-23 06:12] LABS: Bilirubin, Total 1.4 mg/dL (0.2-1.0); Total Protein 5.3 g/dL (6.4-8.2)
[2021-06-23] MEDS: IPRATROPIUM BROM 0.5 MG/2.5ML INH SOL NEB PRN ×2 (08:42→21:38)
[2021-06-23] MEDS: ALBUTEROL SULF 2.5 MG/0.5ML(0.5%) NEB SOLN NEB PRN ×2 (08:42→21:38)
[2021-06-23] MEDS: cefTRIAXone 1GM/50ML D5W 50 ML IV SCH (10:14)
[2021-06-23] MEDS: FERROUS SULFATE 325mg EC TAB PO SCH ×3 (10:14→17:51)
[2021-06-23] MEDS: FUROSEMIDE 40 MG/4 ML VIAL IV SCH (10:14)
[2021-06-23] MEDS: methylPREDNISolone SOD SUCC 40 MG/ML VL IV SCH (10:15)
[2021-06-23] MEDS: FOLIC ACID 1 MG TAB PO SCH (10:26)
[2021-06-23] MEDS: PANTOPRAZOLE 40 MG/10 ML VIAL INJ IV SCH (10:26)
[2021-06-23] MEDS: rifAXIMin 550 MG TAB PO SCH ×2 (10:27→21:02)
[2021-06-23] MEDS: CHOLECALCIFEROL (VITD3) 2,000 UNIT CAP/TAB PO SCH (10:27)
[2021-06-23] MEDS: CYANOCOBALAMIN 500 MCG TAB PO SCH (10:27)
[2021-06-23] MEDS: AZITHROMYCIN 500MG/ 250ML 250 ML IV SCH (10:28)
[2021-06-23] MEDS: POTASSIUM CHL 20MEQ/100ML 100 ML IV SCH ×2 (13:25→17:51)
[2021-06-23] MEDS ORDERED: POTASSIUM CHL 20MEQ/100ML 100 ML IV ONE (17:30)
[2021-06-23] MEDS: TAMSULOSIN HYDROCHLORIDE 0.4 MG CAP PO SCH (17:51)
[2021-06-23] MEDS: ATORVASTATIN 20 MG TAB PO SCH (21:02)
[2021-06-23] MEDS ORDERED: LORazepam 2MG/ML-1ML VIAL IV PRN (21:45)
[2021-06-24] VITALS (26 sets, daily range): BP systolic 93–126; BP diastolic 58–78
[2021-06-24] MEDS: LORazepam 2MG/ML-1ML VIAL IV PRN (00:54)
[2021-06-24] MEDS: SUCRALFATE 1 GM/10 ML ORAL SUSP PO SCH ×4 (06:46→22:33)
[2021-06-24] MEDS: Ensure Enlive Chocolate 8oz Bottle PO SCH ×4 (06:46→22:00)
[2021-06-24] MEDS: LACTULOSE 20Gm/30ML SOLN PO SCH ×3 (06:46→22:00)
[2021-06-24 07:12] LABS: Potassium 3.4 mmol/L (3.5-5.1)
[2021-06-24] MEDS: MORPHINE SULFATE INJECTION 2 MG/ML SYRG IV PRN ×2 (07:13→22:54)
[2021-06-24 07:16] LABS: Albumin 1.8 g/dL (3.4-5.0); BUN/Creatinine Ratio 15.6; Calcium 8.8 mg/dL (8.5-10.1)
[2021-06-24 07:18] LABS: Bilirubin, Total 2.1 mg/dL (0.2-1.0); Total Protein 5.4 g/dL (6.4-8.2)
[2021-06-24 07:29] LABS: INR 1.81 (0.9-1.15)
[2021-06-24 08:23] LABS: Basophils # (auto) 0.1 10 ^3/uL (0-0.2); Basophils % (auto) 1.3 % (0.0-2.0); Eosinophils # (auto) 0 10 ^3/uL (0-0.8); Eosinophils % (auto) 0.1 % (0.0-7.0); Hematocrit 24.7 % (41.0-53.0); Hemoglobin 8.1 g/dL (13.5-17.5); Lymphocytes # (auto) 0.4 10 ^3/uL (0.4-5.4); Lymphocytes % (auto) 8.7 % (10.0-50.0); Mean Corpuscular Hemoglobin 25.1 pg (28.0-32.0); Mean Corpuscular Hgb Conc. 32.7 g/dL (32.0-36.0); Mean Corpuscular Volume 76.7 fL (80.0-100.0); Monocytes # (auto) 0.5 10 ^3/uL (0-1.3); Monocytes % (auto) 10.8 % (0.0-12.0); Neutrophils % (auto) 79.1 % (37.0-80.0); Nucleated Red Blood Cells % 0.3 %; Red Blood Cells 3.22 10^6/uL (4.5-5.90); Red Cell Distribution Width 19.6 % (11.8-14.3)
[2021-06-24] MEDS: cefTRIAXone 1GM/50ML D5W 50 ML IV SCH (09:08)
[2021-06-24] MEDS: FERROUS SULFATE 325mg EC TAB PO SCH ×3 (09:08→19:31)
[2021-06-24] MEDS: rifAXIMin 550 MG TAB PO SCH ×2 (10:00→22:33)
[2021-06-24] MEDS ORDERED: POTASSIUM EFFERVESENT TAB 25 MEQ GT ONE (10:45)
[2021-06-24] MEDS ORDERED: FUROSEMIDE 20 MG/2 ML VIAL IV ONE (11:00)
[2021-06-24] MEDS: ALBUTEROL SULF 2.5 MG/0.5ML(0.5%) NEB SOLN NEB SCH ×2 (12:00→18:40)
[2021-06-24] MEDS: IPRATROPIUM BROM 0.5 MG/2.5ML INH SOL NEB SCH ×2 (12:00→18:40)
[2021-06-24] MEDS ORDERED: PHYTONADIONE (VIT K)10 MG/ML 1ML VIAL IV ONE (12:45)
[2021-06-24] MEDS: AZITHROMYCIN 500MG/ 250ML 250 ML IV SCH (14:03)
[2021-06-24] MEDS: FUROSEMIDE 40 MG/4 ML VIAL IV SCH ×2 (14:33→21:02)
[2021-06-24] MEDS: methylPREDNISolone SOD SUCC 40 MG/ML VL IV SCH (14:34)
[2021-06-24] MEDS: PANTOPRAZOLE 40 MG/10 ML VIAL INJ IV SCH (14:34)
[2021-06-24] MEDS: CHOLECALCIFEROL (VITD3) 2,000 UNIT CAP/TAB PO SCH (14:36)
[2021-06-24] MEDS: CYANOCOBALAMIN 500 MCG TAB PO SCH (14:37)
[2021-06-24] MEDS: FOLIC ACID 1 MG TAB PO SCH (14:37)
[2021-06-24] MEDS: TAMSULOSIN HYDROCHLORIDE 0.4 MG CAP PO SCH (19:34)
[2021-06-24] MEDS: ATORVASTATIN 20 MG TAB PO SCH (22:33)
[2021-06-25] VITALS (40 sets, daily range): BP systolic 88–127; BP diastolic 51–88
[2021-06-25] MEDS: IPRATROPIUM BROM 0.5 MG/2.5ML INH SOL NEB SCH ×5 (00:27→23:01)
[2021-06-25] MEDS: ALBUTEROL SULF 2.5 MG/0.5ML(0.5%) NEB SOLN NEB SCH ×5 (00:27→23:01)
[2021-06-25 04:07] LABS: Albumin 1.7 g/dL (3.4-5.0); Calcium 8.5 mg/dL (8.5-10.1); Potassium 3.2 mmol/L (3.5-5.1)
[2021-06-25 04:09] LABS: Basophils # (auto) 0 10 ^3/uL (0-0.2); Basophils % (auto) 0.1 % (0.0-2.0); Eosinophils # (auto) 0 10 ^3/uL (0-0.8); Hemoglobin 8.3 g/dL (13.5-17.5); Lymphocytes # (auto) 0.3 10 ^3/uL (0.4-5.4); Monocytes # (auto) 0.3 10 ^3/uL (0-1.3); Monocytes % (auto) 10.4 % (0.0-12.0); Nucleated Red Blood Cells % 0.1 %; White Blood Cell 3.2 10^3/uL (4.4-10.8)
[2021-06-25 04:11] LABS: BUN/Creatinine Ratio 18.3; Bilirubin, Total 1.8 mg/dL (0.2-1.0); Total Protein 5.4 g/dL (6.4-8.2)
[2021-06-25 04:12] LABS: Eosinophils % (auto) 0.1 % (0.0-7.0); Hematocrit 25.1 % (41.0-53.0); Lymphocytes % (auto) 9.5 % (10.0-50.0); Mean Corpuscular Hemoglobin 25.2 pg (28.0-32.0); Mean Corpuscular Volume 76.6 fL (80.0-100.0); Neutrophils # (auto) 2.6 10 ^3/uL (1.6-8.6); Neutrophils % (auto) 79.9 % (37.0-80.0); Red Blood Cells 3.28 10^6/uL (4.5-5.90); Red Cell Distribution Width 19.8 % (11.8-14.3)
[2021-06-25 04:17] LABS: INR 1.85 (0.9-1.15)
[2021-06-25] MEDS ORDERED: POTASSIUM CHL 20MEQ/100ML 100 ML IV ONE ×2 (05:45→12:15)
[2021-06-25] MEDS: LACTULOSE 20Gm/30ML SOLN PO SCH ×3 (06:00→22:00)
[2021-06-25] MEDS: HYDROcodone-ACET 5/325MG TAB PO PRN ×2 (06:20→11:43)
[2021-06-25] MEDS: FUROSEMIDE 40 MG/4 ML VIAL IV SCH ×3 (06:21→18:07)
[2021-06-25] MEDS: SUCRALFATE 1 GM/10 ML ORAL SUSP PO SCH ×4 (08:20→22:00)
[2021-06-25] MEDS: FERROUS SULFATE 325mg EC TAB PO SCH ×3 (08:21→18:08)
[2021-06-25] MEDS: cefTRIAXone 1GM/50ML D5W 50 ML IV SCH (08:21)
[2021-06-25] MEDS: Ensure Enlive Chocolate 8oz Bottle PO SCH ×4 (08:22→22:00)
[2021-06-25] MEDS: methylPREDNISolone SOD SUCC 40 MG/ML VL IV SCH (10:22)
[2021-06-25] MEDS: PANTOPRAZOLE 40 MG/10 ML VIAL INJ IV SCH (10:22)
[2021-06-25] MEDS: AZITHROMYCIN 500MG/ 250ML 250 ML IV SCH (10:23)
[2021-06-25] MEDS: rifAXIMin 550 MG TAB PO SCH ×2 (10:33→22:00)
[2021-06-25] MEDS: POTASSIUM EFFERVESENT TAB 25 MEQ PO SCH (10:33)
[2021-06-25] MEDS: CYANOCOBALAMIN 500 MCG TAB PO SCH (10:33)
[2021-06-25] MEDS: FOLIC ACID 1 MG TAB PO SCH (10:33)
[2021-06-25] MEDS: CHOLECALCIFEROL (VITD3) 2,000 UNIT CAP/TAB PO SCH (10:33)
[2021-06-25] MEDS: ENOXAPARIN SOD 40 MG/0.4 ML SYRINGE SC SCH (14:36)
[2021-06-25] MEDS: TAMSULOSIN HYDROCHLORIDE 0.4 MG CAP PO SCH (18:08)
[2021-06-25] MEDS: ATORVASTATIN 20 MG TAB PO SCH (22:00)
[2021-06-26] VITALS (25 sets, daily range): BP systolic 95–135; BP diastolic 49–95
[2021-06-26 04:27] LABS: Hematocrit 24.5 % (41.0-53.0); Hemoglobin 8.1 g/dL (13.5-17.5); Mean Corpuscular Hemoglobin 25.4 pg (28.0-32.0); Mean Corpuscular Hgb Conc. 33.2 g/dL (32.0-36.0); Mean Corpuscular Volume 76.4 fL (80.0-100.0); Red Blood Cells 3.21 10^6/uL (4.5-5.90); White Blood Cell 4.1 10^3/uL (4.4-10.8)
[2021-06-26 04:30] LABS: Basophils % (manual) 0 (0.0-2.0); Blast Cells 0; Eosinophils % (manual) 0 (0-7); Metamyelocytes % 0; Myelocytes % 0; Promyelocytes % 0; Reactive Lymphocytes 0
[2021-06-26 04:35] LABS: Albumin 1.8 g/dL (3.4-5.0); BUN/Creatinine Ratio 16.4; Potassium 3.9 mmol/L (3.5-5.1)
[2021-06-26 04:38] LABS: Bilirubin, Total 1.4 mg/dL (0.2-1.0); Total Protein 5.6 g/dL (6.4-8.2)
[2021-06-26 05:00] LABS: Band Neutrophils % (manual) 2; Lymphocytes % (manual) 12 (10.0-50.0); Monocytes % (manual) 5 (0-12)
[2021-06-26] MEDS: ALBUTEROL SULF 2.5 MG/0.5ML(0.5%) NEB SOLN NEB SCH ×4 (05:47→23:16)
[2021-06-26] MEDS: IPRATROPIUM BROM 0.5 MG/2.5ML INH SOL NEB SCH ×4 (05:48→23:16)
[2021-06-26] MEDS: LACTULOSE 20Gm/30ML SOLN PO SCH (05:56)
[2021-06-26] MEDS: Ensure Enlive Chocolate 8oz Bottle PO SCH ×4 (05:57→22:00)
[2021-06-26] MEDS: SUCRALFATE 1 GM/10 ML ORAL SUSP PO SCH ×4 (05:57→22:00)
[2021-06-26] MEDS: FUROSEMIDE 40 MG/4 ML VIAL IV SCH (05:58)
[2021-06-26] MEDS: PANTOPRAZOLE 40 MG/10 ML VIAL INJ IV SCH (09:27)
[2021-06-26] MEDS: POTASSIUM EFFERVESENT TAB 25 MEQ PO SCH (09:27)
[2021-06-26] MEDS: methylPREDNISolone SOD SUCC 40 MG/ML VL IV SCH (09:27)
[2021-06-26] MEDS: cefTRIAXone 1GM/50ML D5W 50 ML IV SCH (09:27)
[2021-06-26] MEDS: CYANOCOBALAMIN 500 MCG TAB PO SCH (09:28)
[2021-06-26] MEDS: CHOLECALCIFEROL (VITD3) 2,000 UNIT CAP/TAB PO SCH (09:28)
[2021-06-26] MEDS: ENOXAPARIN SOD 40 MG/0.4 ML SYRINGE SC SCH (09:28)
[2021-06-26] MEDS: rifAXIMin 550 MG TAB PO SCH ×2 (09:28→22:00)
[2021-06-26] MEDS: FOLIC ACID 1 MG TAB PO SCH (09:28)
[2021-06-26] MEDS: FERROUS SULFATE 325mg EC TAB PO SCH ×3 (09:29→17:40)
[2021-06-26] MEDS ORDERED: ENOXAPARIN SOD 40 MG/0.4 ML SYRINGE SC SCH (10:00)
[2021-06-26] MEDS: AZITHROMYCIN 500MG/ 250ML 250 ML IV SCH (10:12)
[2021-06-26 12:47] LABS: Magnesium 1.9 mg/dL (1.6-2.6)
[2021-06-26 12:49] LABS: Phosphorus 2.1 mg/dL (2.5-4.90)
[2021-06-26] MEDS: ALBUMIN 25% 100 ML IV SCH ×2 (13:14→23:04)
[2021-06-26 13:21] LABS: Creatinine, Urine 100 mg/dL (30.0-125.0); Protein, Urine 23.3 mg/dL (0.0-11.9); Sodium Urine 23 mmol/L (40-220)
[2021-06-26] MEDS: DOPamine 1600MCG/ML D5W 250 ML IV SCH (13:21)
[2021-06-26 13:31] LABS: Urine Blood 3+ /uL (Negative); Urine Hyaline Cast FEW /lpf (0 - 2); Urine Mucus FEW (None Seen); Urine Specific Gravity 1.014 (1.001-1.035); Urine WBC 26 /hpf (0 - 3)
[2021-06-26] MEDS: BUMETANIDE INJECTION 12.5 MG in GIVE UN-DILUTED 0 ML IV SCH (13:51)
[2021-06-26 14:01] LABS: Urine Bacteria FEW /hpf (None Seen)
[2021-06-26] MEDS: OCTREOTIDE ACETATE 100 MCG/ML VL SUBCUT SCH ×2 (15:02→21:57)
[2021-06-26] MEDS: TAMSULOSIN HYDROCHLORIDE 0.4 MG CAP PO SCH (17:39)
[2021-06-26] MEDS: LORazepam 2MG/ML-1ML VIAL IV PRN (17:39)
[2021-06-26] MEDS: MIDODRINE HCL 10 MG TAB PO SCH (17:39)
[2021-06-26] MEDS ORDERED: diphenhdrAMINE HCL 50 MG/1 ML VL IV ONE (18:15)
[2021-06-26] MEDS: diphenhdrAMINE HCL 50 MG/1 ML VL IV PRN (21:55)
[2021-06-26] MEDS: ATORVASTATIN 20 MG TAB PO SCH (22:00)
[2021-06-26] MEDS: MORPHINE SULFATE INJECTION 2 MG/ML SYRG IV PRN (22:22)
[2021-06-27] VITALS (23 sets, daily range): BP systolic 97–143; BP diastolic 58–88
[2021-06-27] MEDS: ALBUMIN 25% 100 ML IV SCH (04:30)
[2021-06-27] MEDS: ALBUTEROL SULF 2.5 MG/0.5ML(0.5%) NEB SOLN NEB SCH ×3 (05:59→18:01)
[2021-06-27] MEDS: IPRATROPIUM BROM 0.5 MG/2.5ML INH SOL NEB SCH ×3 (05:59→18:01)
[2021-06-27] MEDS: MIDODRINE HCL 10 MG TAB PO SCH ×3 (06:00→18:00)
[2021-06-27] MEDS: OCTREOTIDE ACETATE 100 MCG/ML VL SUBCUT SCH ×3 (06:00→22:00)
[2021-06-27] MEDS: Ensure Enlive Chocolate 8oz Bottle PO SCH ×4 (07:00→22:00)
[2021-06-27] MEDS: SUCRALFATE 1 GM/10 ML ORAL SUSP PO SCH ×4 (07:00→22:00)
[2021-06-27] MEDS: FERROUS SULFATE 325mg EC TAB PO SCH ×3 (08:00→18:00)
[2021-06-27 08:16] LABS: Basophils # (auto) 0 10 ^3/uL (0-0.2); Basophils % (auto) 0.7 % (0.0-2.0); Eosinophils # (auto) 0 10 ^3/uL (0-0.8); Eosinophils % (auto) 0.3 % (0.0-7.0); Hematocrit 24.8 % (41.0-53.0); Hemoglobin 8.1 g/dL (13.5-17.5); Lymphocytes # (auto) 0.5 10 ^3/uL (0.4-5.4); Lymphocytes % (auto) 11.2 % (10.0-50.0); Mean Corpuscular Hemoglobin 24.9 pg (28.0-32.0); Mean Corpuscular Hgb Conc. 32.5 g/dL (32.0-36.0); Mean Corpuscular Volume 76.4 fL (80.0-100.0); Monocytes # (auto) 0.7 10 ^3/uL (0-1.3); Monocytes % (auto) 17.9 % (0.0-12.0); Neutrophils # (auto) 2.9 10 ^3/uL (1.6-8.6); Neutrophils % (auto) 69.9 % (37.0-80.0); Nucleated Red Blood Cells % 0.1 %; Red Blood Cells 3.24 10^6/uL (4.5-5.90); White Blood Cell 4.1 10^3/uL (4.4-10.8)
[2021-06-27] MEDS: BUMETANIDE INJECTION 12.5 MG in GIVE UN-DILUTED 0 ML IV SCH (08:24)
[2021-06-27 08:25] LABS: BUN/Creatinine Ratio 16.4; Calcium 9.3 mg/dL (8.5-10.1); Potassium 3.5 mmol/L (3.5-5.1)
[2021-06-27] MEDS: cefTRIAXone 1GM/50ML D5W 50 ML IV SCH (09:17)
[2021-06-27] MEDS: rifAXIMin 550 MG TAB PO SCH ×2 (10:00→22:00)
[2021-06-27] MEDS: methylPREDNISolone SOD SUCC 40 MG/ML VL IV SCH (10:00)
[2021-06-27] MEDS: PANTOPRAZOLE 40 MG/10 ML VIAL INJ IV SCH (10:00)
[2021-06-27] MEDS: CHOLECALCIFEROL (VITD3) 2,000 UNIT CAP/TAB PO SCH (10:00)
[2021-06-27] MEDS: FOLIC ACID 1 MG TAB PO SCH (10:00)
[2021-06-27] MEDS: CYANOCOBALAMIN 500 MCG TAB PO SCH (10:00)
[2021-06-27] MEDS: POTASSIUM EFFERVESENT TAB 25 MEQ PO SCH (10:00)
[2021-06-27] MEDS: ENOXAPARIN SOD 40 MG/0.4 ML SYRINGE SC SCH (10:00)
[2021-06-27] MEDS ORDERED: POTASSIUM PHOSPHATE 26.4 MEQ in SODIUM CHL 0.9% 100 ML IV ONE (11:15)
[2021-06-27] MEDS: LORazepam 2MG/ML-1ML VIAL IV PRN ×2 (14:36→23:54)
[2021-06-27] MEDS: TAMSULOSIN HYDROCHLORIDE 0.4 MG CAP PO SCH (18:00)
[2021-06-27] MEDS: DOPamine 1600MCG/ML D5W 250 ML IV SCH (18:36)
[2021-06-27] MEDS: diphenhdrAMINE HCL 50 MG/1 ML VL IV PRN (22:00)
[2021-06-27] MEDS: ATORVASTATIN 20 MG TAB PO SCH (22:00)
[2021-06-27] MEDS: HYDROcodone-ACET 5/325MG TAB PO PRN (22:53)
[2021-06-28] VITALS (46 sets, daily range): BP systolic 89–138; BP diastolic 37–96
[2021-06-28] MEDS: ALBUTEROL SULF 2.5 MG/0.5ML(0.5%) NEB SOLN NEB SCH ×2 (00:46→06:39)
[2021-06-28] MEDS: IPRATROPIUM BROM 0.5 MG/2.5ML INH SOL NEB SCH ×2 (00:46→06:39)
[2021-06-28] MEDS: BUMETANIDE INJECTION 12.5 MG in GIVE UN-DILUTED 0 ML IV SCH (05:00)
[2021-06-28] MEDS: SUCRALFATE 1 GM/10 ML ORAL SUSP PO SCH ×4 (05:50→22:50)
[2021-06-28] MEDS: MIDODRINE HCL 10 MG TAB PO SCH ×3 (05:50→18:00)
[2021-06-28] MEDS: OCTREOTIDE ACETATE 100 MCG/ML VL SUBCUT SCH ×3 (05:50→22:52)
[2021-06-28] MEDS: Ensure Enlive Chocolate 8oz Bottle PO SCH ×4 (07:00→21:05)
[2021-06-28] MEDS: FERROUS SULFATE 325mg EC TAB PO SCH ×3 (08:00→18:00)
[2021-06-28 08:35] LABS: Basophils # (auto) 0 10 ^3/uL (0-0.2); Basophils % (auto) 0.1 % (0.0-2.0); Hemoglobin 8.5 g/dL (13.5-17.5); Lymphocytes # (auto) 0.7 10 ^3/uL (0.4-5.4); Monocytes # (auto) 0.5 10 ^3/uL (0-1.3)
[2021-06-28 08:38] LABS: Eosinophils # (auto) 0.4 10 ^3/uL (0-0.8); Eosinophils % (auto) 9.1 % (0.0-7.0); Hematocrit 25.8 % (41.0-53.0); Lymphocytes % (auto) 18.1 % (10.0-50.0); Mean Corpuscular Volume 75.9 fL (80.0-100.0); Monocytes % (auto) 13.8 % (0.0-12.0); Neutrophils # (auto) 2.3 10 ^3/uL (1.6-8.6); Neutrophils % (auto) 58.9 % (37.0-80.0); Nucleated Red Blood Cells % 0.1 %; White Blood Cell 3.9 10^3/uL (4.4-10.8)
[2021-06-28 08:59] LABS: Albumin 2.4 g/dL (3.4-5.0); Calcium 8.7 mg/dL (8.5-10.1); Magnesium 1.8 mg/dL (1.6-2.6); Red Cell Distribution Width 20.1 % (11.8-14.3)
[2021-06-28 09:03] LABS: BUN/Creatinine Ratio 18.4; Bilirubin, Total 1.9 mg/dL (0.2-1.0); Total Protein 5.8 g/dL (6.4-8.2)
[2021-06-28] MEDS: methylPREDNISolone SOD SUCC 40 MG/ML VL IV SCH (10:00)
[2021-06-28] MEDS: PANTOPRAZOLE 40 MG/10 ML VIAL INJ IV SCH (10:00)
[2021-06-28] MEDS: CHOLECALCIFEROL (VITD3) 2,000 UNIT CAP/TAB PO SCH (10:00)
[2021-06-28] MEDS: POTASSIUM EFFERVESENT TAB 25 MEQ PO SCH (10:00)
[2021-06-28] MEDS: rifAXIMin 550 MG TAB PO SCH ×2 (10:00→22:45)
[2021-06-28] MEDS: FOLIC ACID 1 MG TAB PO SCH (10:00)
[2021-06-28] MEDS: ENOXAPARIN SOD 40 MG/0.4 ML SYRINGE SC SCH (10:00)
[2021-06-28] MEDS: CYANOCOBALAMIN 500 MCG TAB PO SCH (10:00)
[2021-06-28] MEDS ORDERED: POTASSIUM CHL 20MEQ/100ML 300 ML IV ONE (11:05)
[2021-06-28] MEDS: POTASSIUM CHL 20MEQ/100ML 100 ML IV SCH ×3 (11:11→15:00)
[2021-06-28 11:49] LABS: Hepatitis C Antibody Negative (Negative)
[2021-06-28] MEDS: LORazepam 2MG/ML-1ML VIAL IV PRN ×2 (12:19→22:57)
[2021-06-28] MEDS: DOPamine 1600MCG/ML D5W 250 ML IV SCH (12:30)
[2021-06-28] MEDS: HYDROcodone-ACET 5/325MG TAB PO PRN (14:30)
[2021-06-28] MEDS: FUROSEMIDE 40 MG TAB PO SCH (18:00)
[2021-06-28] MEDS: TAMSULOSIN HYDROCHLORIDE 0.4 MG CAP PO SCH (18:00)
[2021-06-28] MEDS ORDERED: ALBUTEROL SULF 2.5 MG/0.5ML(0.5%) NEB SOLN NEB PRN (18:00)
[2021-06-28] MEDS ORDERED: IPRATROPIUM BROM 0.5 MG/2.5ML INH SOL NEB PRN (18:00)
[2021-06-28] MEDS: ATORVASTATIN 20 MG TAB PO SCH (22:46)
[2021-06-29] VITALS (25 sets, daily range): BP systolic 90–112; BP diastolic 51–78
[2021-06-29 04:30] LABS: Hematocrit 26.8 % (41.0-53.0); Mean Corpuscular Hemoglobin 25.3 pg (28.0-32.0); Mean Corpuscular Hgb Conc. 33.5 g/dL (32.0-36.0); Mean Corpuscular Volume 75.7 fL (80.0-100.0); Red Blood Cells 3.54 10^6/uL (4.5-5.90); White Blood Cell 5.1 10^3/uL (4.4-10.8)
[2021-06-29 04:40] LABS: Red Cell Distribution Width 20.1 % (11.8-14.3)
[2021-06-29 04:42] LABS: Band Neutrophils % (manual) 0; Basophils % (manual) 0 (0.0-2.0); Blast Cells 0; Metamyelocytes % 0; Myelocytes % 0; Promyelocytes % 0; Reactive Lymphocytes 0
[2021-06-29 04:44] LABS: BUN/Creatinine Ratio 20.2; Calcium 8.7 mg/dL (8.5-10.1); Potassium 3.4 mmol/L (3.5-5.1)
[2021-06-29] MEDS: FUROSEMIDE 40 MG TAB PO SCH ×2 (06:00→18:21)
[2021-06-29] MEDS: DOPamine 1600MCG/ML D5W 250 ML IV SCH (06:00)
[2021-06-29] MEDS: MIDODRINE HCL 10 MG TAB PO SCH ×3 (06:47→18:22)
[2021-06-29] MEDS: SUCRALFATE 1 GM/10 ML ORAL SUSP PO SCH ×4 (06:47→22:03)
[2021-06-29] MEDS: OCTREOTIDE ACETATE 100 MCG/ML VL SUBCUT SCH ×3 (06:51→22:04)
[2021-06-29] MEDS: Ensure Enlive Chocolate 8oz Bottle PO SCH ×3 (10:17→17:00)
[2021-06-29] MEDS: FERROUS SULFATE 325mg EC TAB PO SCH ×3 (10:35→18:00)
[2021-06-29] MEDS: PANTOPRAZOLE 40 MG/10 ML VIAL INJ IV SCH (10:35)
[2021-06-29] MEDS: CYANOCOBALAMIN 500 MCG TAB PO SCH (10:36)
[2021-06-29] MEDS: FOLIC ACID 1 MG TAB PO SCH (10:36)
[2021-06-29] MEDS: CHOLECALCIFEROL (VITD3) 2,000 UNIT CAP/TAB PO SCH (10:37)
[2021-06-29] MEDS: rifAXIMin 550 MG TAB PO SCH ×2 (10:37→22:03)
[2021-06-29] MEDS: ENOXAPARIN SOD 40 MG/0.4 ML SYRINGE SC SCH (10:37)
[2021-06-29] MEDS: POTASSIUM EFFERVESENT TAB 25 MEQ PO SCH (11:04)
[2021-06-29 11:17] LABS: Eosinophils % (manual) 6 (0-7); Lymphocytes % (manual) 22 (10.0-50.0); Monocytes % (manual) 5 (0-12)
[2021-06-29] MEDS: LORazepam 2MG/ML-1ML VIAL IV PRN (15:30)
[2021-06-29] MEDS ORDERED: acetaZOLAMIDE SODIUM 500 MG VL IV ONE (17:30)
[2021-06-29] MEDS: TAMSULOSIN HYDROCHLORIDE 0.4 MG CAP PO SCH (18:22)
[2021-06-29] MEDS: ATORVASTATIN 20 MG TAB PO SCH (22:03)
[2021-06-29] MEDS: MORPHINE SULFATE INJECTION 2 MG/ML SYRG IV PRN (22:05)
[2021-06-30] MEDS: Ensure Enlive Chocolate 8oz Bottle PO SCH ×5 (06:10→22:00)
[2021-06-30] MEDS: SUCRALFATE 1 GM/10 ML ORAL SUSP PO SCH ×2 (06:17→12:03)
[2021-06-30] MEDS: MIDODRINE HCL 10 MG TAB PO SCH ×3 (06:18→16:51)
[2021-06-30] MEDS: OCTREOTIDE ACETATE 100 MCG/ML VL SUBCUT SCH ×2 (06:18→14:44)
[2021-06-30] MEDS: FUROSEMIDE 40 MG TAB PO SCH (06:27)
[2021-06-30] MEDS: FERROUS SULFATE 325mg EC TAB PO SCH ×2 (08:50→12:04)
[2021-06-30] MEDS: PANTOPRAZOLE 40 MG/10 ML VIAL INJ IV SCH (08:50)
[2021-06-30] MEDS: CHOLECALCIFEROL (VITD3) 2,000 UNIT CAP/TAB PO SCH (08:51)
[2021-06-30] MEDS: CYANOCOBALAMIN 500 MCG TAB PO SCH (08:51)
[2021-06-30] MEDS: POTASSIUM EFFERVESENT TAB 25 MEQ PO SCH (08:51)
[2021-06-30] MEDS: FOLIC ACID 1 MG TAB PO SCH (08:51)
[2021-06-30] MEDS: rifAXIMin 550 MG TAB PO SCH ×2 (08:53→22:00)
[2021-06-30 09:00] VITALS: BP 122/79
[2021-06-30] MEDS: ENOXAPARIN SOD 40 MG/0.4 ML SYRINGE SC SCH (10:00)
[2021-06-30 13:00] VITALS: BP 94/51
[2021-06-30] MEDS: DOPamine 1600MCG/ML D5W 250 ML IV SCH (13:15)
[2021-06-30] MEDS ORDERED: ALBUMIN 25% 100 ML IV ONE (14:15)
[2021-06-30] MEDS ORDERED: acetaZOLAMIDE 250 MG TAB PO ONE (14:15)
[2021-06-30 17:13] VITALS: BP 109/67
[2021-06-30] MEDS: LORazepam 2MG/ML-1ML VIAL IV PRN (19:47)
[2021-06-30 20:00] VITALS: BP 106/66
[2021-06-30 22:00] VITALS: BP 113/60
[2021-07-01 05:00] VITALS: BP 96/56
[2021-07-01 06:26] LABS: Potassium 3.4 mmol/L (3.5-5.1)
[2021-07-01 06:36] LABS: BUN/Creatinine Ratio 25.7; Calcium 8.5 mg/dL (8.5-10.1)
[2021-07-01] MEDS: Ensure Enlive Chocolate 8oz Bottle PO SCH ×4 (07:00→23:09)
[2021-07-01] MEDS: MIDODRINE HCL 10 MG TAB PO SCH ×3 (07:01→17:15)
[2021-07-01 08:00] VITALS: BP_SYST 109; BP_SYST 115; BP_DIAS 62; BP_DIAS 67
[2021-07-01] MEDS: POTASSIUM EFFERVESENT TAB 25 MEQ PO SCH (09:41)
[2021-07-01] MEDS: rifAXIMin 550 MG TAB PO SCH ×2 (09:41→23:10)
[2021-07-01] MEDS: PANTOPRAZOLE 40 MG TAB PO SCH (09:41)
[2021-07-01] MEDS: LORazepam 2MG/ML-1ML VIAL IV PRN (10:05)
[2021-07-01 13:00] VITALS: BP 115/67
[2021-07-01 22:00] VITALS: BP 108/63
[2021-07-02 03:44] VITALS: BP 108/63
[2021-07-02 05:00] VITALS: BP 111/70
[2021-07-02] MEDS: MIDODRINE HCL 10 MG TAB PO SCH ×3 (06:00→17:27)
[2021-07-02 06:13] LABS: Hematocrit 24.2 % (41.0-53.0); Hemoglobin 7.9 g/dL (13.5-17.5); Mean Corpuscular Hgb Conc. 32.7 g/dL (32.0-36.0)
[2021-07-02 06:15] LABS: Mean Corpuscular Hemoglobin 24.4 pg (28.0-32.0); Mean Corpuscular Volume 74.8 fL (80.0-100.0); Red Blood Cells 3.23 10^6/uL (4.5-5.90); White Blood Cell 5.8 10^3/uL (4.4-10.8)
[2021-07-02 06:17] LABS: Red Cell Distribution Width 20.4 % (11.8-14.3)
[2021-07-02 06:19] LABS: Basophils % (manual) 0 (0.0-2.0); Blast Cells 0; Metamyelocytes % 0; Myelocytes % 0; Promyelocytes % 0; Reactive Lymphocytes 0
[2021-07-02 06:32] LABS: BUN/Creatinine Ratio 28.5; Calcium 8.4 mg/dL (8.5-10.1); Potassium 3.2 mmol/L (3.5-5.1)
[2021-07-02] MEDS: Ensure Enlive Chocolate 8oz Bottle PO SCH ×4 (07:00→22:00)
[2021-07-02 07:55] LABS: Band Neutrophils % (manual) 3; Eosinophils % (manual) 9 (0-7); Lymphocytes % (manual) 15 (10.0-50.0); Monocytes % (manual) 9 (0-12)
[2021-07-02 08:35] VITALS: BP 104/66
[2021-07-02] MEDS: POTASSIUM EFFERVESENT TAB 25 MEQ PO SCH (09:50)
[2021-07-02] MEDS: HYDROcodone-ACET 5/325MG TAB PO PRN (09:51)
[2021-07-02] MEDS: PANTOPRAZOLE 40 MG TAB PO SCH (09:51)
[2021-07-02] MEDS: rifAXIMin 550 MG TAB PO SCH ×2 (10:00→22:00)
[2021-07-02] MEDS ORDERED: FUROSEMIDE 40 MG TAB PO ONE (11:00)
[2021-07-02 13:00] VITALS: BP 111/61
[2021-07-02] MEDS: POTASSIUM CHL 20MEQ/100ML 100 ML IV SCH ×2 (13:34→15:31)
[2021-07-02 16:52] VITALS: BP 104/63
[2021-07-02 22:00] VITALS: BP 107/59
[2021-07-03 05:00] VITALS: BP 96/61
[2021-07-03 06:08] LABS: Hematocrit 24.2 % (41.0-53.0); Mean Corpuscular Hemoglobin 24.9 pg (28.0-32.0); Mean Corpuscular Hgb Conc. 33.2 g/dL (32.0-36.0); Mean Corpuscular Volume 74.9 fL (80.0-100.0); Red Blood Cells 3.23 10^6/uL (4.5-5.90)
[2021-07-03 06:20] LABS: Calcium 8.8 mg/dL (8.5-10.1); Potassium 3.3 mmol/L (3.5-5.1)
[2021-07-03 06:24] LABS: Red Cell Distribution Width 20.2 % (11.8-14.3)
[2021-07-03 06:25] LABS: Basophils % (manual) 0 (0.0-2.0); Blast Cells 0; Metamyelocytes % 0; Myelocytes % 0; Promyelocytes % 0; Reactive Lymphocytes 0
[2021-07-03] MEDS: Ensure Enlive Chocolate 8oz Bottle PO SCH ×4 (06:25→21:52)
[2021-07-03] MEDS: MIDODRINE HCL 10 MG TAB PO SCH ×3 (06:25→18:06)
[2021-07-03 06:57] LABS: Band Neutrophils % (manual) 2; Eosinophils % (manual) 3 (0-7); Lymphocytes % (manual) 11 (10.0-50.0); Monocytes % (manual) 10 (0-12)
[2021-07-03] MEDS: HYDROcodone-ACET 5/325MG TAB PO PRN (07:53)
[2021-07-03 09:00] VITALS: BP 117/66
[2021-07-03] MEDS: POTASSIUM EFFERVESENT TAB 25 MEQ PO SCH (09:36)
[2021-07-03] MEDS: PANTOPRAZOLE 40 MG TAB PO SCH (09:36)
[2021-07-03] MEDS: rifAXIMin 550 MG TAB PO SCH ×2 (09:36→21:46)
[2021-07-03] MEDS ORDERED: FUROSEMIDE 40 MG TAB PO SCH (10:00)
[2021-07-03] MEDS: LORazepam 0.5 MG TAB PO SCH (12:47)
[2021-07-03 13:00] VITALS: BP 115/70
[2021-07-03 17:00] VITALS: BP 113/70
[2021-07-03 21:42] VITALS: BP 102/61
[2021-07-04] VITALS (9 sets, daily range): BP systolic 91–128; BP diastolic 50–65
[2021-07-04] MEDS: HALOPERIDOL LACTATE 5 MG/ML INJ VIAL IM PRN (01:27)
[2021-07-04 05:41] LABS: Hemoglobin 7.3 g/dL (13.5-17.5)
[2021-07-04 05:44] LABS: Hematocrit 21.8 % (41.0-53.0); Mean Corpuscular Hemoglobin 24.7 pg (28.0-32.0); Mean Corpuscular Hgb Conc. 33.3 g/dL (32.0-36.0); Mean Corpuscular Volume 74.3 fL (80.0-100.0); Red Blood Cells 2.93 10^6/uL (4.5-5.90); White Blood Cell 7.2 10^3/uL (4.4-10.8)
[2021-07-04] MEDS: MIDODRINE HCL 10 MG TAB PO SCH ×3 (05:55→17:41)
[2021-07-04 06:00] LABS: BUN/Creatinine Ratio 23.3; Calcium 8.9 mg/dL (8.5-10.1); Potassium 3.5 mmol/L (3.5-5.1)
[2021-07-04 06:11] LABS: Basophils % (manual) 0 (0.0-2.0); Blast Cells 0; Metamyelocytes % 0; Myelocytes % 0; Promyelocytes % 0; Reactive Lymphocytes 0; Red Cell Distribution Width 20.7 % (11.8-14.3)
[2021-07-04 07:45] LABS: Band Neutrophils % (manual) 1; Eosinophils % (manual) 4 (0-7); Lymphocytes % (manual) 20 (10.0-50.0); Monocytes % (manual) 5 (0-12)
[2021-07-04] MEDS: Ensure Enlive Chocolate 8oz Bottle PO SCH ×4 (08:12→22:56)
[2021-07-04] MEDS ORDERED: PHYTONADIONE (VIT K)10 MG/ML 1ML VIAL IV ONE (09:45)
[2021-07-04] MEDS: rifAXIMin 550 MG TAB PO SCH ×2 (09:54→22:56)
[2021-07-04] MEDS: LORazepam 0.5 MG TAB PO SCH (09:54)
[2021-07-04] MEDS: PANTOPRAZOLE 40 MG TAB PO SCH (09:54)
[2021-07-04] MEDS: POTASSIUM EFFERVESENT TAB 25 MEQ PO SCH (09:55)
[2021-07-04] MEDS: HYDROcodone-ACET 5/325MG TAB PO PRN ×2 (09:55→18:11)
[2021-07-04] MEDS ORDERED: phytonadione 10 MG in SODIUM CHL 0.9% 50 ML IV ONE (10:15)
[2021-07-04] MEDS ORDERED: RIFA550T PO (10:43)
[2021-07-04] MEDS ORDERED: MID10T PO (10:43)
[2021-07-04] MEDS ORDERED: PANT40T PO (10:43)
[2021-07-04] MEDS ORDERED: FUROSEMIDE 40 MG/4 ML VIAL IV ONE (13:15)
[2021-07-04] MEDS ORDERED: FUROSEMIDE 20 MG/2 ML VIAL IV ONE (22:00)
[2021-07-05] VITALS (16 sets, daily range): BP systolic 88–124; BP diastolic 35–77
[2021-07-05] MEDS: HYDROcodone-ACET 5/325MG TAB PO PRN ×2 (00:14→09:27)
[2021-07-05] MEDS: HALOPERIDOL LACTATE 5 MG/ML INJ VIAL IM PRN ×2 (03:00→21:00)
[2021-07-05 05:45] LABS: Mean Corpuscular Hemoglobin 26.6 pg (28.0-32.0); Mean Corpuscular Hgb Conc. 34.7 g/dL (32.0-36.0); Mean Corpuscular Volume 76.5 fL (80.0-100.0); Red Blood Cells 2.36 10^6/uL (4.5-5.90); White Blood Cell 7.1 10^3/uL (4.4-10.8)
[2021-07-05 05:55] LABS: INR 2.26 (0.9-1.15)
[2021-07-05 05:57] LABS: Red Cell Distribution Width 21.6 % (11.8-14.3)
[2021-07-05 05:58] LABS: Hemoglobin 6.3 g/dL (13.5-17.5)
[2021-07-05 06:00] LABS: Basophils % (manual) 0 (0.0-2.0); Blast Cells 0; Eosinophils % (manual) 0 (0-7); Metamyelocytes % 0; Myelocytes % 0; Promyelocytes % 0; Reactive Lymphocytes 0
[2021-07-05] MEDS: MIDODRINE HCL 10 MG TAB PO SCH ×3 (06:04→18:47)
[2021-07-05 06:58] LABS: Band Neutrophils % (manual) 1; Lymphocytes % (manual) 9 (10.0-50.0); Monocytes % (manual) 8 (0-12)
[2021-07-05] MEDS: Ensure Enlive Chocolate 8oz Bottle PO SCH ×4 (07:00→22:00)
[2021-07-05] MEDS: PANTOPRAZOLE 40 MG TAB PO SCH (09:27)
[2021-07-05] MEDS: rifAXIMin 550 MG TAB PO SCH ×2 (09:27→21:00)
[2021-07-05] MEDS: POTASSIUM EFFERVESENT TAB 25 MEQ PO SCH (09:28)
[2021-07-05] MEDS: LORazepam 0.5 MG TAB PO SCH (09:28)
[2021-07-06] VITALS (19 sets, daily range): BP systolic 105–158; BP diastolic 30–61
[2021-07-06 05:35] LABS: Hematocrit 14.9 % (41.0-53.0)
[2021-07-06 05:43] LABS: Hemoglobin 5.4 g/dL (13.5-17.5)
[2021-07-06] MEDS: MIDODRINE HCL 10 MG TAB PO SCH ×3 (06:00→17:59)
[2021-07-06] MEDS: Ensure Enlive Chocolate 8oz Bottle PO SCH ×4 (07:00→22:00)
[2021-07-06] MEDS ORDERED: POTASSIUM CHL 20MEQ/100ML 100 ML IV ONE (08:15)
[2021-07-06] MEDS: rifAXIMin 550 MG TAB PO SCH ×2 (10:00→22:00)
[2021-07-06] MEDS: POTASSIUM EFFERVESENT TAB 25 MEQ PO SCH (10:00)
[2021-07-06] MEDS ORDERED: LORazepam 2MG/ML-1ML VIAL IV ONE (10:00)
[2021-07-06 11:42] LABS: INR 2.51 (0.9-1.15)
[2021-07-06] MEDS: PANTOPRAZOLE 40 MG/10 ML VIAL INJ IV SCH (13:36)
[2021-07-06] MEDS: DOPamine 1600MCG/ML D5W 250 ML IV SCH (14:21)
[2021-07-06] MEDS: BUMETANIDE INJECTION 12.5 MG in GIVE UN-DILUTED 0 ML IV SCH (14:22)
[2021-07-06] MEDS: OCTREOTIDE ACETATE 100 MCG/ML VL SUBCUT SCH ×2 (15:16→22:34)
[2021-07-06] MEDS: LORazepam 2MG/ML-1ML VIAL IV PRN (16:02)
[2021-07-06] MEDS ORDERED: PHYTONADIONE (VIT K)10 MG/ML 1ML VIAL IV ONE (17:30)
[2021-07-06] MEDS ORDERED: phytonadione 10 MG in SODIUM CHL 0.9% 50 ML IV ONE (17:45)
[2021-07-06] MEDS: HALOPERIDOL LACTATE 5 MG/ML INJ VIAL IM PRN (17:51)
[2021-07-06 18:01] LABS: Hematocrit 22.5 % (41.0-53.0); Hemoglobin 7.9 g/dL (13.5-17.5)
[2021-07-06 20:35] LABS: Protein, Urine 145.8 mg/dL (0.0-11.9)
[2021-07-07] VITALS (32 sets, daily range): BP systolic 109–153; BP diastolic 54–95
[2021-07-07 01:27] LABS: Phosphorus 5.3 mg/dL (2.5-4.90)
[2021-07-07 01:28] LABS: BUN/Creatinine Ratio 23.4; Calcium 9.9 mg/dL (8.5-10.1); Potassium 4.6 mmol/L (3.5-5.1)
[2021-07-07] MEDS: LORazepam 2MG/ML-1ML VIAL IV PRN ×2 (03:40→21:21)
[2021-07-07 04:19] LABS: Basophils # (auto) 0 10 ^3/uL (0-0.2); Basophils % (auto) 0.1 % (0.0-2.0); Eosinophils # (auto) 0 10 ^3/uL (0-0.8); Eosinophils % (auto) 0.1 % (0.0-7.0); Hemoglobin 7.1 g/dL (13.5-17.5); Lymphocytes # (auto) 0.8 10 ^3/uL (0.4-5.4); Monocytes # (auto) 1.4 10 ^3/uL (0-1.3); Nucleated Red Blood Cells % 0.2 %; Red Blood Cells 2.46 10^6/uL (4.5-5.90); White Blood Cell 8.7 10^3/uL (4.4-10.8)
[2021-07-07 04:21] LABS: Hematocrit 19.9 % (41.0-53.0); Lymphocytes % (auto) 9.3 % (10.0-50.0); Mean Corpuscular Hemoglobin 28.7 pg (28.0-32.0); Mean Corpuscular Hgb Conc. 35.5 g/dL (32.0-36.0); Monocytes % (auto) 16.4 % (0.0-12.0); Neutrophils # (auto) 6.4 10 ^3/uL (1.6-8.6); Neutrophils % (auto) 74.1 % (37.0-80.0); Red Cell Distribution Width 19.1 % (11.8-14.3)
[2021-07-07 04:38] LABS: INR 1.96 (0.9-1.15)
[2021-07-07 04:41] LABS: Albumin 2.8 g/dL (3.4-5.0); BUN/Creatinine Ratio 23.8; Calcium 10.2 mg/dL (8.5-10.1); Potassium 4.2 mmol/L (3.5-5.1)
[2021-07-07 04:43] LABS: Bilirubin, Total 11.7 mg/dL (0.2-1.0)
[2021-07-07] MEDS: MIDODRINE HCL 10 MG TAB PO SCH ×3 (05:34→17:48)
[2021-07-07] MEDS: OCTREOTIDE ACETATE 100 MCG/ML VL SUBCUT SCH ×3 (05:45→21:58)
[2021-07-07] MEDS: Ensure Enlive Chocolate 8oz Bottle PO SCH ×4 (06:44→21:57)
[2021-07-07] MEDS: PANTOPRAZOLE 40 MG/10 ML VIAL INJ IV SCH (09:09)
[2021-07-07] MEDS: rifAXIMin 550 MG TAB PO SCH ×2 (10:00→21:58)
[2021-07-07] MEDS: POTASSIUM EFFERVESENT TAB 25 MEQ PO SCH (10:00)
[2021-07-07] MEDS ORDERED: BELLADONNA ALKAL/OPIUM (16.2/30MG) RECT SUPP PR SCH (10:00)
[2021-07-07] MEDS: BUMETANIDE INJECTION 12.5 MG in GIVE UN-DILUTED 0 ML IV SCH ×2 (14:08→23:00)
[2021-07-07] MEDS: acetaZOLAMIDE SODIUM 500 MG VL IV SCH (14:09)
[2021-07-07] MEDS: DOPamine 1600MCG/ML D5W 250 ML IV SCH ×2 (16:38→23:00)
[2021-07-08] VITALS (30 sets, daily range): BP systolic 105–152; BP diastolic 46–118
[2021-07-08] MEDS: acetaZOLAMIDE SODIUM 500 MG VL IV SCH ×2 (01:30→13:59)
[2021-07-08] MEDS: LORazepam 2MG/ML-1ML VIAL IV PRN ×2 (04:53→13:58)
[2021-07-08 05:39] LABS: Potassium 3.5 mmol/L (3.5-5.1)
[2021-07-08 05:52] LABS: Albumin 2.7 g/dL (3.4-5.0); BUN/Creatinine Ratio 25.4; Calcium 9.7 mg/dL (8.5-10.1)
[2021-07-08 05:55] LABS: Bilirubin, Total 13.7 mg/dL (0.2-1.0); Total Protein 5.8 g/dL (6.4-8.2)
[2021-07-08] MEDS: MIDODRINE HCL 10 MG TAB PO SCH ×3 (06:00→19:00)
[2021-07-08] MEDS: OCTREOTIDE ACETATE 100 MCG/ML VL SUBCUT SCH ×3 (06:00→21:03)
[2021-07-08] MEDS: Ensure Enlive Chocolate 8oz Bottle PO SCH ×4 (06:31→22:00)
[2021-07-08] MEDS ORDERED: POTASSIUM CHL 20MEQ/100ML 100 ML IV ONE (10:00)
[2021-07-08] MEDS: PANTOPRAZOLE 40 MG/10 ML VIAL INJ IV SCH (10:22)
[2021-07-08] MEDS: POTASSIUM CHL 20MEQ/100ML 100 ML IV SCH ×2 (10:30→13:59)
[2021-07-08] MEDS ORDERED: BUMETANIDE INJECTION 50 ML ONE (20:55)
[2021-07-09] VITALS (16 sets, daily range): BP systolic 89–139; BP diastolic 48–76
[2021-07-09 03:51] LABS: Basophils # (auto) 0 10 ^3/uL (0-0.2); Basophils % (auto) 0.2 % (0.0-2.0); Eosinophils # (auto) 0.1 10 ^3/uL (0-0.8); Eosinophils % (auto) 1.2 % (0.0-7.0); Lymphocytes # (auto) 0.6 10 ^3/uL (0.4-5.4); Lymphocytes % (auto) 8.8 % (10.0-50.0); Neutrophils # (auto) 5.2 10 ^3/uL (1.6-8.6)
[2021-07-09 04:09] LABS: Hemoglobin 8.7 g/dL (13.5-17.5); Mean Corpuscular Hemoglobin 29.8 pg (28.0-32.0); Mean Corpuscular Hgb Conc. 34.9 g/dL (32.0-36.0); Mean Corpuscular Volume 85.4 fL (80.0-100.0); Monocytes # (auto) 0.7 10 ^3/uL (0-1.3); Monocytes % (auto) 10.8 % (0.0-12.0); Nucleated Red Blood Cells % 0.2 %; Red Blood Cells 2.93 10^6/uL (4.5-5.90); Red Cell Distribution Width 19.1 % (11.8-14.3); White Blood Cell 6.5 10^3/uL (4.4-10.8)
[2021-07-09 04:14] LABS: Albumin 2.7 g/dL (3.4-5.0); BUN/Creatinine Ratio 25.9; Calcium 9.3 mg/dL (8.5-10.1)
[2021-07-09 04:26] LABS: Total Protein 5.8 g/dL (6.4-8.2)
[2021-07-09] MEDS: MIDODRINE HCL 10 MG TAB PO SCH ×2 (06:00→11:00)
[2021-07-09] MEDS: OCTREOTIDE ACETATE 100 MCG/ML VL SUBCUT SCH ×3 (06:00→23:31)
[2021-07-09] MEDS: Ensure Enlive Chocolate 8oz Bottle PO SCH ×4 (07:00→21:46)
[2021-07-09] MEDS: PANTOPRAZOLE 40 MG/10 ML VIAL INJ IV SCH (10:36)
[2021-07-09] MEDS ORDERED: PPN PER PHARMACY 0 ML IV SCH (11:15)
[2021-07-09] MEDS: BUMETANIDE INJECTION 12.5 MG in GIVE UN-DILUTED 0 ML IV SCH (12:45)
[2021-07-09] MEDS: POTASSIUM CHL 20MEQ/100ML 100 ML IV SCH ×3 (12:53→16:43)
[2021-07-09] MEDS ORDERED: DEXTROSE (50%) 50ML SYRG IV SCH (14:00)
[2021-07-09] MEDS: acetaZOLAMIDE SODIUM 500 MG VL IV SCH ×2 (14:25→20:30)
[2021-07-09 14:35] LABS: Magnesium 1.8 mg/dL (1.6-2.6); Phosphorus 4.2 mg/dL (2.5-4.90)
[2021-07-09] MEDS: DOPamine 1600MCG/ML D5W 250 ML IV SCH (15:07)
[2021-07-09 17:31] LABS: Urine Bacteria NONE SEEN /hpf (None Seen); Urine Blood 3+ /uL (Negative); Urine Specific Gravity 1.008 (1.001-1.035); Urine WBC 8 /hpf (0 - 3)
[2021-07-09] MEDS: InsuLIN REG 1unit/0.01ml Soln (100units/ml) SC SCH (18:00)
[2021-07-09] MEDS: ACCU-CHEK COMFORT CURVE STRIP VI SCH (19:05)
[2021-07-09] MEDS ORDERED: PPN PER PHARMACY IV NR ×5 (20:00)
[2021-07-10] MEDS: ACCU-CHEK COMFORT CURVE STRIP VI SCH ×5 (00:01→23:55)
[2021-07-10] MEDS: acetaZOLAMIDE SODIUM 500 MG VL IV SCH ×4 (04:30→21:51)
[2021-07-10 05:00] VITALS: BP 141/70
[2021-07-10] MEDS: LACTULOSE 10g/15ml SOLN 473ML PR SCH ×4 (05:14→18:34)
[2021-07-10] MEDS: InsuLIN REG 1unit/0.01ml Soln (100units/ml) SC SCH ×5 (05:58→23:56)
[2021-07-10] MEDS: OCTREOTIDE ACETATE 100 MCG/ML VL SUBCUT SCH ×3 (05:59→23:44)
[2021-07-10] MEDS: Ensure Enlive Chocolate 8oz Bottle PO SCH ×4 (06:36→22:00)
[2021-07-10 07:12] LABS: Albumin 2.7 g/dL (3.4-5.0); BUN/Creatinine Ratio 23.8; Bilirubin, Total 20.7 mg/dL (0.2-1.0); Calcium 9.2 mg/dL (8.5-10.1); Magnesium 2.3 mg/dL (1.6-2.6); Phosphorus 3.1 mg/dL (2.5-4.90)
[2021-07-10 07:38] LABS: Potassium 2.8 mmol/L (3.5-5.1)
[2021-07-10] MEDS: PANTOPRAZOLE 40 MG/10 ML VIAL INJ IV SCH (08:23)
[2021-07-10 09:00] VITALS: BP 115/77
[2021-07-10] MEDS: BUMETANIDE INJECTION 12.5 MG in GIVE UN-DILUTED 0 ML IV SCH (11:00)
[2021-07-10] MEDS: POTASSIUM CHL 20MEQ/100ML 100 ML IV SCH ×4 (12:00→21:22)
[2021-07-10] MEDS ORDERED: POTASSIUM CHL 20MEQ/100ML 100 ML IV SCH (12:15)
[2021-07-10 12:19] VITALS: BP 107/68
[2021-07-10] MEDS: DOPamine 1600MCG/ML D5W 250 ML IV SCH (12:45)
[2021-07-10] MEDS ORDERED: PPN PER PHARMACY IV NR ×7 (20:00)
[2021-07-11 05:00] VITALS: BP 138/66
[2021-07-11] MEDS: acetaZOLAMIDE SODIUM 500 MG VL IV SCH ×2 (05:41→17:53)
[2021-07-11] MEDS: LACTULOSE 10g/15ml SOLN 473ML PR SCH ×4 (05:56→17:54)
[2021-07-11] MEDS: ACCU-CHEK COMFORT CURVE STRIP VI SCH ×3 (05:57→17:55)
[2021-07-11] MEDS: OCTREOTIDE ACETATE 100 MCG/ML VL SUBCUT SCH ×3 (06:00→21:17)
[2021-07-11] MEDS: InsuLIN REG 1unit/0.01ml Soln (100units/ml) SC SCH ×3 (06:00→17:55)
[2021-07-11] MEDS: Ensure Enlive Chocolate 8oz Bottle PO SCH ×5 (06:01→21:17)
[2021-07-11 07:27] LABS: Hematocrit 30.8 % (41.0-53.0); Hemoglobin 10.4 g/dL (13.5-17.5); Mean Corpuscular Hemoglobin 29.6 pg (28.0-32.0); Mean Corpuscular Hgb Conc. 33.7 g/dL (32.0-36.0); Mean Corpuscular Volume 87.8 fL (80.0-100.0); Red Blood Cells 3.51 10^6/uL (4.5-5.90); White Blood Cell 7.9 10^3/uL (4.4-10.8)
[2021-07-11 07:32] LABS: Red Cell Distribution Width 20.7 % (11.8-14.3)
[2021-07-11 07:34] LABS: Band Neutrophils % (manual) 0; Basophils % (manual) 0 (0.0-2.0); Blast Cells 0; Metamyelocytes % 0; Myelocytes % 0; Promyelocytes % 0; Reactive Lymphocytes 0
[2021-07-11 07:38] LABS: Albumin 2.8 g/dL (3.4-5.0); Calcium 9.7 mg/dL (8.5-10.1); Magnesium 1.6 mg/dL (1.6-2.6)
[2021-07-11 07:51] LABS: BUN/Creatinine Ratio 25.1; Bilirubin, Total 24.5 mg/dL (0.2-1.0); Phosphorus 1.8 mg/dL (2.5-4.90); Total Protein 6.5 g/dL (6.4-8.2)
[2021-07-11 08:33] LABS: Eosinophils % (manual) 1 (0-7); Lymphocytes % (manual) 16 (10.0-50.0); Monocytes % (manual) 12 (0-12)
[2021-07-11 09:23] VITALS: BP 130/70
[2021-07-11] MEDS: PANTOPRAZOLE 40 MG/10 ML VIAL INJ IV SCH (09:42)
[2021-07-11] MEDS ORDERED: POTASSIUM PHOSPHATE 44 MEQ in D5W 5% 250 ML IV ONE (09:45)
[2021-07-11] MEDS: DOPamine 1600MCG/ML D5W 250 ML IV SCH (10:01)
[2021-07-11] MEDS: BUMETANIDE INJECTION 12.5 MG in GIVE UN-DILUTED 0 ML IV SCH (10:03)
[2021-07-11] MEDS ORDERED: POTASSIUM CHL 20MEQ/100ML 100 ML IV SCH (11:30)
[2021-07-11 13:00] VITALS: BP 111/66
[2021-07-11] MEDS: MAGNESIUM SULFATE 1GM/100ML 100 ML IV SCH ×2 (13:05→16:54)
[2021-07-11] MEDS ORDERED: acetaZOLAMIDE SODIUM 500 MG VL IV SCH (14:00)
[2021-07-11] MEDS ORDERED: MAGNESIUM SULFATE 1GM/100ML 100 ML IV SCH (17:00)
[2021-07-11 18:00] VITALS: BP 125/70
[2021-07-11] MEDS ORDERED: PPN PER PHARMACY IV NR ×7 (20:00)
[2021-07-11 22:00] VITALS: BP 128/72
[2021-07-12] MEDS: ACCU-CHEK COMFORT CURVE STRIP VI SCH ×4 (00:01→17:37)
[2021-07-12] MEDS: LACTULOSE 10g/15ml SOLN 473ML PR SCH ×4 (00:01→20:19)
[2021-07-12] MEDS: acetaZOLAMIDE SODIUM 500 MG VL IV SCH ×3 (00:38→17:22)
[2021-07-12 05:00] VITALS: BP 131/60
[2021-07-12] MEDS: InsuLIN REG 1unit/0.01ml Soln (100units/ml) SC SCH ×4 (05:33→17:37)
[2021-07-12] MEDS: Ensure Enlive Chocolate 8oz Bottle PO SCH ×4 (05:34→20:19)
[2021-07-12] MEDS: OCTREOTIDE ACETATE 100 MCG/ML VL SUBCUT SCH ×3 (05:34→20:16)
[2021-07-12 05:43] LABS: Hematocrit 33.2 % (41.0-53.0); Hemoglobin 11.2 g/dL (13.5-17.5); Mean Corpuscular Hemoglobin 29.8 pg (28.0-32.0); Mean Corpuscular Hgb Conc. 33.6 g/dL (32.0-36.0); Mean Corpuscular Volume 88.7 fL (80.0-100.0); Red Blood Cells 3.74 10^6/uL (4.5-5.90); White Blood Cell 10.9 10^3/uL (4.4-10.8)
[2021-07-12 05:45] LABS: Basophils % (manual) 0 (0.0-2.0); Blast Cells 0; Metamyelocytes % 0; Myelocytes % 0; Promyelocytes % 0; Reactive Lymphocytes 0; Red Cell Distribution Width 21.3 % (11.8-14.3)
[2021-07-12 05:47] LABS: Potassium 3.1 mmol/L (3.5-5.1)
[2021-07-12 06:10] LABS: Albumin 2.8 g/dL (3.4-5.0); BUN/Creatinine Ratio 27.2; Bilirubin, Total 29.7 mg/dL (0.2-1.0); Calcium 9.3 mg/dL (8.5-10.1); Magnesium 2.1 mg/dL (1.6-2.6); Phosphorus 3.7 mg/dL (2.5-4.90); Total Protein 6.5 g/dL (6.4-8.2)
[2021-07-12 08:43] LABS: Band Neutrophils % (manual) 1; Eosinophils % (manual) 4 (0-7); Lymphocytes % (manual) 9 (10.0-50.0); Monocytes % (manual) 3 (0-12)
[2021-07-12 09:00] VITALS: BP 116/49
[2021-07-12] MEDS: PANTOPRAZOLE 40 MG/10 ML VIAL INJ IV SCH (10:11)
[2021-07-12] MEDS ORDERED: POTASSIUM CHL 20MEQ/100ML 100 ML IV SCH (12:30)
[2021-07-12] MEDS: DOPamine 1600MCG/ML D5W 250 ML IV SCH (12:45)
[2021-07-12] MEDS: POTASSIUM CHL 20MEQ/100ML 100 ML IV SCH ×2 (12:45→13:00)
[2021-07-12] MEDS: BUMETANIDE INJECTION 12.5 MG in GIVE UN-DILUTED 0 ML IV SCH (12:57)
[2021-07-12 13:00] VITALS: BP 146/77
[2021-07-12 17:00] VITALS: BP 139/73
[2021-07-12] MEDS ORDERED: PPN PER PHARMACY IV NR ×7 (20:00)
[2021-07-12 22:00] VITALS: BP 139/67
[2021-07-13] MEDS: ACCU-CHEK COMFORT CURVE STRIP VI SCH ×5 (00:13→23:42)
[2021-07-13] MEDS: acetaZOLAMIDE SODIUM 500 MG VL IV SCH ×2 (01:21→10:26)
[2021-07-13] MEDS: LACTULOSE 10g/15ml SOLN 473ML PR SCH (03:31)
[2021-07-13 05:00] VITALS: BP 128/64
[2021-07-13] MEDS: OCTREOTIDE ACETATE 100 MCG/ML VL SUBCUT SCH ×3 (05:16→21:08)
[2021-07-13] MEDS: InsuLIN REG 1unit/0.01ml Soln (100units/ml) SC SCH ×5 (05:17→23:42)
[2021-07-13] MEDS: Ensure Enlive Chocolate 8oz Bottle PO SCH (05:44)
[2021-07-13 05:55] LABS: Hemoglobin 11.3 g/dL (13.5-17.5)
[2021-07-13 05:59] LABS: Hematocrit 34.1 % (41.0-53.0); Mean Corpuscular Hemoglobin 29.7 pg (28.0-32.0); Mean Corpuscular Hgb Conc. 33.1 g/dL (32.0-36.0); Mean Corpuscular Volume 89.8 fL (80.0-100.0); Red Blood Cells 3.79 10^6/uL (4.5-5.90)
[2021-07-13 06:15] LABS: Albumin 2.6 g/dL (3.4-5.0); Calcium 9.1 mg/dL (8.5-10.1); Magnesium 2.2 mg/dL (1.6-2.6); Potassium 3.9 mmol/L (3.5-5.1)
[2021-07-13 06:24] LABS: Red Cell Distribution Width 21.9 % (11.8-14.3)
[2021-07-13 06:26] LABS: Basophils % (manual) 0 (0.0-2.0); Blast Cells 0; Metamyelocytes % 0; Myelocytes % 0; Promyelocytes % 0; Reactive Lymphocytes 0
[2021-07-13 06:30] LABS: Phosphorus 3.2 mg/dL (2.5-4.90)
[2021-07-13 07:29] LABS: Band Neutrophils % (manual) 1; Eosinophils % (manual) 1 (0-7); Lymphocytes % (manual) 8 (10.0-50.0); Monocytes % (manual) 5 (0-12)
[2021-07-13 08:43] VITALS: BP 125/74
[2021-07-13] MEDS: PANTOPRAZOLE 40 MG/10 ML VIAL INJ IV SCH (10:25)
[2021-07-13] MEDS: BUMETANIDE INJECTION 12.5 MG in GIVE UN-DILUTED 0 ML IV SCH (12:45)
[2021-07-13] MEDS: DOPamine 1600MCG/ML D5W 250 ML IV SCH (12:45)
[2021-07-13 12:53] LABS: Total Protein 6.2 g/dL (6.4-8.2)
[2021-07-13 13:00] VITALS: BP 130/69
[2021-07-13 16:55] VITALS: BP 137/69
[2021-07-13] MEDS ORDERED: PPN PER PHARMACY IV NR ×7 (20:00)
[2021-07-14 05:30] VITALS: BP 114/65
[2021-07-14] MEDS: OCTREOTIDE ACETATE 100 MCG/ML VL SUBCUT SCH ×3 (05:50→21:33)
[2021-07-14] MEDS: InsuLIN REG 1unit/0.01ml Soln (100units/ml) SC SCH ×3 (05:50→17:59)
[2021-07-14] MEDS: ACCU-CHEK COMFORT CURVE STRIP VI SCH ×3 (05:50→17:37)
[2021-07-14 06:09] LABS: Potassium 3.2 mmol/L (3.5-5.1)
[2021-07-14 06:14] LABS: Albumin 2.5 g/dL (3.4-5.0); BUN/Creatinine Ratio 35.1; Calcium 9.3 mg/dL (8.5-10.1); Magnesium 2.3 mg/dL (1.6-2.6)
[2021-07-14 06:23] LABS: Phosphorus 2.6 mg/dL (2.5-4.90)
[2021-07-14 06:34] LABS: Bilirubin, Total 38.4 mg/dL (0.2-1.0)
[2021-07-14 09:00] VITALS: BP 115/69
[2021-07-14] MEDS: PANTOPRAZOLE 40 MG/10 ML VIAL INJ IV SCH (10:40)
[2021-07-14] MEDS: SODIUM CHLORIDE 0.9% 1,000 ML IV SCH ×2 (10:46→17:33)
[2021-07-14] MEDS: DOPamine 1600MCG/ML D5W 250 ML IV SCH (12:45)
[2021-07-14 13:00] VITALS: BP 102/60
[2021-07-14 16:37] VITALS: BP 143/68
[2021-07-14] MEDS ORDERED: PPN PER PHARMACY IV NR ×6 (20:00)
[2021-07-14 22:00] VITALS: BP 133/62
[2021-07-15 05:00] VITALS: BP 123/76
[2021-07-15] MEDS: InsuLIN REG 1unit/0.01ml Soln (100units/ml) SC SCH ×4 (06:00→17:08)
[2021-07-15] MEDS: ACCU-CHEK COMFORT CURVE STRIP VI SCH ×4 (06:07→16:27)
[2021-07-15] MEDS: OCTREOTIDE ACETATE 100 MCG/ML VL SUBCUT SCH ×3 (06:08→21:14)
[2021-07-15 06:15] LABS: Albumin 2.5 g/dL (3.4-5.0); Calcium 9.2 mg/dL (8.5-10.1); Phosphorus 1.9 mg/dL (2.5-4.90)
[2021-07-15 06:17] LABS: Calcium 9.1 mg/dL (8.5-10.1); Magnesium 2.2 mg/dL (1.6-2.6)
[2021-07-15 06:19] LABS: BUN/Creatinine Ratio 39.1
[2021-07-15 06:22] LABS: Potassium 2.4 mmol/L (3.5-5.1)
[2021-07-15 06:29] LABS: BUN/Creatinine Ratio 39.5; Potassium 2.4 mmol/L (3.5-5.1)
[2021-07-15] MEDS: POTASSIUM CHL 20MEQ/100ML 100 ML IV SCH ×2 (08:44→09:12)
[2021-07-15] MEDS ORDERED: POTASSIUM CHL 20MEQ/100ML 100 ML IV SCH (08:45)
[2021-07-15] MEDS ORDERED: D5W 5% 1,000 ML IV SCH (08:45)
[2021-07-15] MEDS: PANTOPRAZOLE 40 MG/10 ML VIAL INJ IV SCH (08:48)
[2021-07-15 13:00] VITALS: BP 109/49
[2021-07-15 16:54] VITALS: BP 115/52
[2021-07-15] MEDS ORDERED: POTASSIUM PHOSPHATE 22 MEQ in SODIUM CHL 0.9% 100 ML IV ONE (17:00)
[2021-07-15] MEDS ORDERED: PPN PER PHARMACY IV NR ×5 (20:00)
[2021-07-15] MEDS: D5W 5% 1,000 ML IV SCH (20:13)
[2021-07-15 21:36] VITALS: BP 113/68
[2021-07-16] MEDS: InsuLIN REG 1unit/0.01ml Soln (100units/ml) SC SCH ×5 (00:52→23:34)
[2021-07-16] MEDS: ACCU-CHEK COMFORT CURVE STRIP VI SCH ×5 (00:53→23:32)
[2021-07-16 05:14] VITALS: BP 121/53
[2021-07-16] MEDS: OCTREOTIDE ACETATE 100 MCG/ML VL SUBCUT SCH ×3 (05:26→22:00)
[2021-07-16 05:56] LABS: Hematocrit 30.1 % (41.0-53.0); Hemoglobin 10.4 g/dL (13.5-17.5); Mean Corpuscular Hemoglobin 30.6 pg (28.0-32.0); Mean Corpuscular Hgb Conc. 34.5 g/dL (32.0-36.0); Mean Corpuscular Volume 88.8 fL (80.0-100.0); White Blood Cell 11.7 10^3/uL (4.4-10.8)
[2021-07-16 06:03] LABS: Red Cell Distribution Width 24.7 % (11.8-14.3)
[2021-07-16 06:05] LABS: Albumin 2.2 g/dL (3.4-5.0); BUN/Creatinine Ratio 37.2; Calcium 9.4 mg/dL (8.5-10.1)
[2021-07-16 06:06] LABS: INR 2.39 (0.9-1.15); Partial Thromboplastin Time 65.5 sec (23.6-33.0)
[2021-07-16 06:07] LABS: Basophils % (manual) 0 (0.0-2.0); Blast Cells 0; Metamyelocytes % 0; Promyelocytes % 0; Reactive Lymphocytes 0
[2021-07-16 06:18] LABS: Bilirubin, Total 40.7 mg/dL (0.2-1.0); Phosphorus 2.6 mg/dL (2.5-4.90)
[2021-07-16 06:39] LABS: Potassium 2.9 mmol/L (3.5-5.1)
[2021-07-16 06:52] LABS: Total Protein 5.2 g/dL (6.4-8.2)
[2021-07-16] MEDS: POTASSIUM CHL 20MEQ/100ML 100 ML IV SCH ×3 (08:07→13:55)
[2021-07-16 08:16] VITALS: BP 126/61
[2021-07-16 08:27] LABS: Band Neutrophils % (manual) 2; Eosinophils % (manual) 1 (0-7); Lymphocytes % (manual) 6 (10.0-50.0); Monocytes % (manual) 10 (0-12); Myelocytes % 1
[2021-07-16] MEDS: D5W 5% 1,000 ML IV SCH ×2 (09:23→21:18)
[2021-07-16] MEDS: PANTOPRAZOLE 40 MG/10 ML VIAL INJ IV SCH (12:30)
[2021-07-16 12:33] VITALS: BP 121/58
[2021-07-16] MEDS: THIAMINE 100mg/ml INJ (200mg/2ml VIAL) IV SCH (15:42)
[2021-07-16] MEDS: FOLIC ACID 1 MG in D5W 5% 50 ML INJ SCH (16:30)
[2021-07-16 16:45] VITALS: BP 100/52
[2021-07-16] MEDS ORDERED: PPN PER PHARMACY IV NR ×7 (20:00)
[2021-07-16 22:00] VITALS: BP 116/50
[2021-07-17 05:33] VITALS: BP 118/53
[2021-07-17] MEDS: ACCU-CHEK COMFORT CURVE STRIP VI SCH ×2 (05:45→11:53)
[2021-07-17] MEDS: InsuLIN REG 1unit/0.01ml Soln (100units/ml) SC SCH ×2 (05:46→11:54)
[2021-07-17] MEDS: OCTREOTIDE ACETATE 100 MCG/ML VL SUBCUT SCH ×2 (05:57→14:15)
[2021-07-17 06:02] LABS: Hemoglobin 10.3 g/dL (13.5-17.5); Red Blood Cells 3.42 10^6/uL (4.5-5.90)
[2021-07-17 06:03] LABS: Hematocrit 30.4 % (41.0-53.0); Mean Corpuscular Hgb Conc. 33.8 g/dL (32.0-36.0); Mean Corpuscular Volume 88.7 fL (80.0-100.0); White Blood Cell 10.1 10^3/uL (4.4-10.8)
[2021-07-17 06:13] LABS: Band Neutrophils % (manual) 0; Basophils % (manual) 0 (0.0-2.0); Blast Cells 0; Metamyelocytes % 0; Myelocytes % 0; Promyelocytes % 0; Reactive Lymphocytes 0; Red Cell Distribution Width 25.4 % (11.8-14.3)
[2021-07-17 06:15] LABS: Albumin 2.2 g/dL (3.4-5.0); Calcium 9.4 mg/dL (8.5-10.1); Magnesium 2.2 mg/dL (1.6-2.6)
[2021-07-17 06:29] LABS: Bilirubin, Direct 31.3 mg/dL (0-0.2); Bilirubin, Total 40.9 mg/dL (0.2-1.0); Phosphorus 2.5 mg/dL (2.5-4.90)
[2021-07-17 06:47] LABS: BUN/Creatinine Ratio 39.1
[2021-07-17 06:50] LABS: Total Protein 5.1 g/dL (6.4-8.2)
[2021-07-17 08:22] LABS: Eosinophils % (manual) 4 (0-7); Lymphocytes % (manual) 2 (10.0-50.0); Monocytes % (manual) 11 (0-12)
[2021-07-17 09:00] VITALS: BP 114/46
[2021-07-17] MEDS: THIAMINE 100mg/ml INJ (200mg/2ml VIAL) IV SCH (10:03)
[2021-07-17] MEDS: PANTOPRAZOLE 40 MG/10 ML VIAL INJ IV SCH (10:04)
[2021-07-17] MEDS: POTASSIUM CHL 20MEQ/100ML 100 ML IV SCH ×2 (10:04→12:48)
[2021-07-17] MEDS: D5W 5% 1,000 ML IV SCH (10:55)
[2021-07-17] MEDS ORDERED: POTASSIUM PHOSPHATE 22 MEQ in SODIUM CHL 0.9% 100 ML IV ONE (12:00)
[2021-07-17 13:00] VITALS: BP 109/51
[2021-07-17 13:49] VITALS: BP 109/57
[2021-07-17] MEDS: FOLIC ACID 1 MG in D5W 5% 50 ML INJ SCH (14:42)
[2021-07-17 16:46] VITALS: BP 113/54
[2021-07-17] MEDS ORDERED: PPN PER PHARMACY IV NR ×7 (20:00)
== END 2021-07-17 17:50 | disposition hospice, home (50) | DRG 177 ==
LOC: EDBD 11:04 → ER 11:04 → TELE 17:06 → TELE-CENTR 20:52 → ICU WEST 06-24 11:36 → TELE-WESTW 06-29 17:11 → TELE-EAST 06-29 20:03 → TELE-WESTW 07-03 16:58 → ICU WEST 07-06 13:01 → DOU IN ICU 07-07 07:11 → ICU WEST 07-07 08:35 → TELE-WESTW 07-09 21:58
PROVIDERS: ADMIT Hospitalist; ATTEND Internal Medicine Pulmonary Disease
PROC: 5A09357 Assistance with Respiratory Ventilation, Less than 24 Consecutive Hours, Continuous Positive Airway Pressure (ICD-10-PCS; 2021-06-21)
PROC: 30233N1 Transfusion of Nonautologous Red Blood Cells into Peripheral Vein, Percutaneous Approach (ICD-10-PCS; principal; 2021-06-23)
PROC: 5A09357 Assistance with Respiratory Ventilation, Less than 24 Consecutive Hours, Continuous Positive Airway Pressure (ICD-10-PCS; 2021-06-23)
PROC: 5A09357 Assistance with Respiratory Ventilation, Less than 24 Consecutive Hours, Continuous Positive Airway Pressure (ICD-10-PCS; 2021-06-24)
PROC: 5A09357 Assistance with Respiratory Ventilation, Less than 24 Consecutive Hours, Continuous Positive Airway Pressure (ICD-10-PCS; 2021-06-25)
PROC: 5A09357 Assistance with Respiratory Ventilation, Less than 24 Consecutive Hours, Continuous Positive Airway Pressure (ICD-10-PCS; 2021-06-26)
PROC: 30233K1 Transfusion of Nonautologous Frozen Plasma into Peripheral Vein, Percutaneous Approach (ICD-10-PCS; 2021-07-05)
PROC: 5A09357 Assistance with Respiratory Ventilation, Less than 24 Consecutive Hours, Continuous Positive Airway Pressure (ICD-10-PCS; 2021-07-06)
PROC: 05HC33Z Insertion of Infusion Device into Left Basilic Vein, Percutaneous Approach (ICD-10-PCS; 2021-07-06)
PROC: B54NZZA Ultrasonography of Left Upper Extremity Veins, Guidance (ICD-10-PCS; 2021-07-06)
PROC: 5A09357 Assistance with Respiratory Ventilation, Less than 24 Consecutive Hours, Continuous Positive Airway Pressure (ICD-10-PCS; 2021-07-07)
PROC: 5A09357 Assistance with Respiratory Ventilation, Less than 24 Consecutive Hours, Continuous Positive Airway Pressure (ICD-10-PCS; 2021-07-08)
DX: J69.0 Pneumonitis due to inhalation of food and vomit (principal); J96.21 Acute and chronic respiratory failure with hypoxia; J96.22 Acute and chronic respiratory failure with hypercapnia; K76.7 Hepatorenal syndrome; K72.00 Acute and subacute hepatic failure without coma; K66.1 Hemoperitoneum; N17.0 Acute kidney failure with tubular necrosis; K76.6 Portal hypertension; D62 Acute posthemorrhagic anemia; J44.1 Chronic obstructive pulmonary disease with (acute) exacerbation; N39.0 Urinary tract infection, site not specified; D68.4 Acquired coagulation factor deficiency; I50.30 Unspecified diastolic (congestive) heart failure; J44.0 Chronic obstructive pulmonary disease with (acute) lower respiratory infection; E87.0 Hyperosmolality and hypernatremia; I13.0 Hypertensive heart and chronic kidney disease with heart failure and stage 1 through stage 4 chronic kidney disease, or unspecified chronic kidney disease; K76.81 Hepatopulmonary syndrome; K44.9 Diaphragmatic hernia without obstruction or gangrene; K21.9 Gastro-esophageal reflux disease without esophagitis; E87.6 Hypokalemia; E83.39 Other disorders of phosphorus metabolism; F03.90 Unspecified dementia, unspecified severity, without behavioral disturbance, psychotic disturbance, mood disturbance, and anxiety; D69.6 Thrombocytopenia, unspecified; N18.9 Chronic kidney disease, unspecified; F32.A Depression, unspecified; Z20.822 Contact with and (suspected) exposure to COVID-19; K70.31 Alcoholic cirrhosis of liver with ascites; R31.9 Hematuria, unspecified; I82.462 Acute embolism and thrombosis of left calf muscular vein; Z79.899 Other long term (current) drug therapy; Z82.3 Family history of stroke; Z82.49 Family history of ischemic heart disease and other diseases of the circulatory system; Z83.3 Family history of diabetes mellitus; Z85.46 Personal history of malignant neoplasm of prostate; Z90.79 Acquired absence of other genital organ(s)
CPT/HCPCS: 36415; 36600; 51702; 70450; 70551; 71045; 71275; 74176; 76775; 80048; 80053; 80061; 80069; 80202; 80307; 81001; 82140; 82248; 82270; 82306; 82550; 82570; 82728; 82805; 82962; 83605; 83615; 83690; 83735; 83880; 83970; 84100; 84132; 84154; 84156; 84300; 84443; 84478; 84484; 84550; 85007; 85014; 85018; 85025; 85027; 85379; 85610; 85652; 85730; 86141; 86803; 86850; 86900; 86901; 86920; 87040; 87081; 87086; 87340; 93005; 93306; 93970; 94003; 94640; 94660; 95819; 96374; 96375; 97163; A4565; C9113; G0378; J0696; J1815; J3430; J3480; J7060; P9047